=== PATIENT | male | born 1935 | race Caucasian/White ===

== ENCOUNTER 2016-07-31 14:06 | Emergency (ER) | payer MEDICARE ==
--- NOTE | 2016-07-31 14:34 | ER Document Report ---
ED Medical Screen (RME) - General Chief Complaint: Chest Pressure Stated Complaint: CHEST PAIN Time seen by provider: 14:32 Mode of Arrival: Ambulatory Information source: Patient TRAVEL OUTSIDE OF THE [place] IN LAST 30 DAYS: No - HPI Patient complains to provider of: CHEST PRESSURE Onset: Other - SEVERAL DAYS Onset/Duration: Intermittent Context: PT THINKS MEDICATION CHANGE THAT OCCURRED SATURDAY IS THE CAUSE OF THE PRESSURE Quality of pain: Pressure Severity: Moderate Pain Level: 3 Associated Symptoms: Chest pain, Dizzy/lightheaded, Shortness of breath, Other - FATIGUE. denies: Nausea, Vomiting Exacerbated by: Denies Relieved by: Denies Similar symptoms previously: Yes Recently seen / treated by doctor: Yes - Related Data Smoking: Cigarettes Frequency of alcohol use: None Drug Abuse: None Allergies/Adverse Reactions: Penicillins Allergy (Verified 07/31/16 14:08) prednisone [Prednisone] Allergy (Verified 07/31/16 14:08) Past Medical History - Past Medical History Cardiac Medical History: Reports: Hx Heart Attack - 2015, Hx Hypercholesterolemia, Hx Hypertension Past Surgical History: Reports: Hx Appendectomy, Hx Bowel Surgery - Hemmorhoidectomy, Hx Cardiac Surgery - CABG x 3 - Immunizations Hx Diphtheria, Pertussis, Tetanus Vaccination: Yes Physical Exam - Vital signs Vitals: Temp Pulse Resp BP Pulse Ox 98.3 F 92 20 131/70 H 99 07/31/16 14:24 07/31/16 14:24 07/31/16 14:24 07/31/16 14:24 07/31/16 14:24 Course - Vital Signs Vital signs: Temp Pulse Resp BP Pulse Ox 98.3 F 92 20 131/70 H 99 07/31/16 14:24 07/31/16 14:24 07/31/16 14:24 07/31/16 14:24 07/31/16 14:24
--- NOTE | 2016-07-31 14:54 | EKG REPORT ---
SEVERITY:- NORMAL ECG - SINUS RHYTHM sinus Arrhythmia : Confirmed by: Kailyn Bustamante 01-Aug-2016 01:23:41
[2016-07-31 16:10] LABS: ABSOLUTE BASOPHILS # (AUTO) 0.1 10^3/uL (0.0-0.2); ABSOLUTE EOSINOPHILS # (AUTO) 0.3 10^3/uL (0.0-0.6); ABSOLUTE LYMPHOCYTES (AUTO) 0.9 10^3/uL (0.5-4.7); ABSOLUTE MONOCYTES (AUTO) 1.4 10^3/uL (0.1-1.4); ABSOLUTE NEUT (AUTO) 6.8 10^3/uL (1.7-8.2); BASOPHILS % (AUTO) 0.8 % (0-2); EOSINOPHILS % (AUTO) 2.7 % (0-6); HEMATOCRIT 29.2 % (37.9-51.0); HEMOGLOBIN 10.1 g/dL (13.5-17.0); HGB HCT DIFFERENCE 1.1; LYMPHOCYTES % (AUTO) 9.7 % (13-45); MEAN CORPUSCULAR HEMOGLOBIN 36.8 pg (27.0-33.4); MEAN CORPUSCULAR HGB CONC 34.7 g/dL (32.0-36.0); MEAN CORPUSCULAR VOLUME 106 fl (80-97); MONOCYTES % (AUTO) 14.6 % (3-13); RED BLOOD COUNT 2.76 10^6/uL (4.35-5.55); RED CELL DISTRIBUTION WIDTH 16.8 % (11.5-14.0); SEGMENTED NEUTROPHILS % (AUTO) 72.2 % (42-78); WHITE BLOOD COUNT 9.5 10^3/uL (4.0-10.5)
[2016-07-31 16:17] LABS: PROTHROMBIN TIME 13.5 SEC (11.4-15.4)
[2016-07-31 16:38] LABS: ALANINE AMINOTRANSFERASE 34 U/L (21-72); ALKALINE PHOSPHATASE 74 U/L (38-126); ANION GAP 11 (5-19); ASPARTATE AMINO TRANSFERASE 26 U/L (17-59); BILIRUBIN,TOTAL 0.8 mg/dL (0.2-1.3); BLOOD UREA NITROGEN 27 mg/dL (7-20); CALCIUM 9.2 mg/dL (8.4-10.2); CARBON DIOXIDE 27 mmol/L (22-30); CHLORIDE 99 mmol/L (98-107); CREATINE KINASE 36 U/L (55-170); CREATININE RESULT 1.35 mg/dL (0.52-1.25); GLUCOSE 96 mg/dL (75-110); SODIUM 136.9 mmol/L (137-145); TOTAL PROTEIN 7.2 g/dL (6.3-8.2)
[2016-07-31 16:49] LABS: CREATINE KINASE MB 0.33 ng/mL (<4.55)
[2016-07-31 16:52] LABS: TROPONIN I < 0.012 ng/mL
--- NOTE | 2016-07-31 19:25 | ER Document Report ---
ED General - General Chief Complaint: Chest Pressure Stated Complaint: CHEST PAIN Mode of Arrival: Ambulatory Notes: Patient is an 81-year-old male with past medical history of coronary artery disease status post multiple caths with stents and CABG, hypertension, hyperlipidemia presents with 2 days of intermittent chest pressure. Denies any pain at the time of assessment. Described as a pressure-like sensation. Nothing improves or worsens the pain. States this feels very similar to prior episodes of angina he's had but he was concerned as it was a bit more intense than his normal. 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 Denies any shortness of breath, nausea, vomiting or diaphoresis. No syncope. TRAVEL OUTSIDE OF THE [place] IN LAST 30 DAYS: No - Related Data Allergies/Adverse Reactions: Penicillins Allergy (Verified 07/31/16 14:08) prednisone [Prednisone] Allergy (Verified 07/31/16 14:08) Past Medical History - General Information source: Patient - Social History Smoking Status: Never Smoker Frequency of alcohol use: None Drug Abuse: None Lives with: Spouse/Significant other Family History: Reviewed & Not Pertinent Patient has suicidal ideation: No Patient has homicidal ideation: No - Past Medical History Cardiac Medical History: Reports: Hx Heart Attack - 2015, Hx Hypercholesterolemia, Hx Hypertension Past Surgical History: Reports: Hx Appendectomy, Hx Bowel Surgery - Hemmorhoidectomy, Hx Cardiac Surgery - CABG x 3 - Immunizations Hx Diphtheria, Pertussis, Tetanus Vaccination: Yes Review of Systems - Review of Systems Notes: Constitutional: Negative for fever. HENT: Negative for sore throat. Eyes: Negative for visual changes. Cardiovascular: Positive for chest pain. Respiratory: Negative for shortness of breath. Gastrointestinal: Negative for abdominal pain, vomiting or diarrhea. Genitourinary: Negative for dysuria. Musculoskeletal: Negative for back pain. Skin: Negative for rash. Neurological: Negative for headaches, weakness or numbness. 10 point ROS negative except as marked above and in HPI. Physical Exam - Vital signs Vitals: Temp Pulse Resp BP Pulse Ox 98.3 F 92 20 131/70 H 99 07/31/16 14:24 07/31/16 14:24 07/31/16 14:24 07/31/16 14:24 07/31/16 14:24 Interpretation: Normal Notes: PHYSICAL EXAMINATION: GENERAL: Well-appearing, well-nourished and in no acute distress. HEAD: Atraumatic, normocephalic. EYES: Pupils equal round and reactive to light, extraocular movements intact, sclera anicteric, conjunctiva are normal. ENT: nares patent, oropharynx clear without exudates. Moist mucous membranes. NECK: Normal range of motion, supple without lymphadenopathy LUNGS: Breath sounds clear to auscultation bilaterally and equal. No wheezes rales or rhonchi. HEART: Regular rate and rhythm without murmurs ABDOMEN: Soft, nontender, normoactive bowel sounds. No guarding, no rebound. No masses appreciated. EXTREMITIES: Normal range of motion, no pitting or edema. No cyanosis. NEUROLOGICAL: No focal neurological deficits. Moves all extremities spontaneously and on command. PSYCH: Normal mood, normal affect. SKIN: Warm, Dry, normal turgor, no rashes or lesions noted. Course - Re-evaluation Re-evalutation: 08/01/16 02:36 Presentation of chest pain in an otherwise well appearing patient. Low clinical suspicion for ACS given clinical history, exam, EKG without ST elevations or depressions, and negative initial troponin. PE also seems unlikely given clinical history, absence of tachycardia or dyspnea. Wells score is 0. CXR without evidence of pneumothorax or pneumonia. No widened mediastinum. Aortic dissection also seems unlikely given history, symmetric pulses, CXR, and vitals. I have discussed at length with the patient that based on his age and medical history, there is no way I can tell him he is definitively low risk and have offered admission to the hospital for inpatient stress testing. The patient and his son at the bedside and agreed to follow-up as an outpatient and have verbalized the risks and benefits of this decision. The patient has capacity. He has remained chest pain-free throughout the duration of his time here in the emergency department.At this time will discharge with return precautions and follow-up recommendations. Verbal discharge instructions given a the bedside and opportunity for questions given. Medication warnings reviewed. Patient is in agreement with this plan and has verbalized understanding of return precautions and the need for primary care follow-up in the next 24-72 hours. - Vital Signs Vital signs: Temp Pulse Resp BP Pulse Ox 98.0 F 75 18 129/64 H 94 07/31/16 19:36 07/31/16 19:36 07/31/16 19:36 07/31/16 19:36 07/31/16 19:36 - Laboratory Result Diagrams: 07/31/16 15:49 07/31/16 13:26 Laboratory results interpreted by me: 07/31/16 07/31/16 13:26 15:49 RBC 2.76 L Hgb 10.1 L Hct 29.2 L MCV 106 H MCH 36.8 H RDW 16.8 H Plt Count 117 L Lymphocytes % 9.7 L Monocytes % 14.6 H Sodium 136.9 L BUN 27 H Creatinine 1.35 H Est GFR (Non-Af Amer) 51 L Creatine Kinase 36 L - Diagnostic Test Radiology reviewed: Image reviewed, Reports reviewed Radiology results interpreted by me: 08/01/16 02:36 Chest x-ray: No acute infiltrate or pneumothorax - EKG Interpretation by Me Additional EKG results interpreted by me: 08/01/16 02:38 Sinus rhythm. Rate 91. No ST elevations or depressions. QTC 429. Discharge - Discharge Clinical Impression: Chest pain Qualifiers: Chest pain type: unspecified Qualified Code(s): R07.9 - Chest pain, unspecified Condition: Good Disposition: HOME, SELF-CARE Additional Instructions: You were seen today for chest pain. The exact cause of your pain is unclear. However, based on your cardiac enzyme testing, chest x-ray, and EKG it does not appear that it is from an immediately life-threatening cause at this time. Although your testing here is normal is critical that you follow-up with your primary care physician for continued evaluation of this chest pain and possible stress testing. I recommended you see your physician within the next 24-48 hours to be evaluated for consideration of a stress test. Please return to emergency department immediately if you have worsening of your chest pain, shortness of breath, vomiting, become unable to exert yourself due to pain or difficulty breathing, you pass out, or have any pain that radiates into your arms, jaw, or back. Please also return if you have any additional symptoms that are concerning to you. Referrals: DANNY IJM MD [Primary Care Provider] - Follow up tomorrow
[2016-07-31 19:40] VITALS: BP 129/64
== END 2016-07-31 19:40 | disposition home or self-care (01) ==
LOC: ER 14:06
DX: R07.9 Chest pain, unspecified (principal); I25.10 Atherosclerotic heart disease of native coronary artery without angina pectoris; I10 Essential (primary) hypertension; E78.5 Hyperlipidemia, unspecified
CPT/HCPCS: 36415; 71020; 80053; 82550; 82553; 84484; 85025; 85610; 93005; 93010; 99285

== ENCOUNTER → 2016-09-25 | Outpatient (CLI) | payer MEDICARE ==
[2016-09-25 14:38] LABS: HEMATOCRIT 32.9 % (37.9-51.0); HGB HCT DIFFERENCE 0.1; MEAN CORPUSCULAR HGB CONC 33.5 g/dL (32.0-36.0); RED BLOOD COUNT 2.98 10^6/uL (4.35-5.55); WHITE BLOOD COUNT 5.5 10^3/uL (4.0-10.5)
[2016-09-25 14:39] LABS: MEAN CORPUSCULAR VOLUME 111 fl (80-97)
[2016-09-25 14:47] LABS: ALANINE AMINOTRANSFERASE 31 U/L (21-72); ALBUMIN 4.4 g/dL (3.5-5.0); ALKALINE PHOSPHATASE 79 U/L (38-126); ANION GAP 12 (5-19); ASPARTATE AMINO TRANSFERASE 26 U/L (17-59); BILIRUBIN,TOTAL 0.5 mg/dL (0.2-1.3); BLOOD UREA NITROGEN 24 mg/dL (7-20); CALCIUM 9.7 mg/dL (8.4-10.2); CARBON DIOXIDE 26 mmol/L (22-30); CHLORIDE 103 mmol/L (98-107); CHOLESTEROL 127.74 mg/dL (0-200); CREATININE RESULT 1.36 mg/dL (0.52-1.25); Direct HDL 43 mg/dL (>40); GLUCOSE 88 mg/dL (75-110); MAGNESIUM 2.2 mg/dL (1.6-2.3); POTASSIUM 4.9 mmol/L (3.6-5.0); SODIUM 141.1 mmol/L (137-145); TOTAL PROTEIN 7.5 g/dL (6.3-8.2); TRIGLYCERIDES 99 mg/dL (<150)
[2016-09-25 14:58] LABS: DIRECT LDL 66 mg/dL (<100)
== END ==
LOC: OD 12:57
PROVIDERS: ATTEND Internal Medicine Cardiovascular Disease
DX: I10 Essential (primary) hypertension (principal); E03.9 Hypothyroidism, unspecified; I48.91 Unspecified atrial fibrillation; R25.2 Cramp and spasm; I25.10 Atherosclerotic heart disease of native coronary artery without angina pectoris; R06.02 Shortness of breath
CPT/HCPCS: 36415; 80048; 80061; 80076; 83735; 83880; 84443; 85027

== ENCOUNTER → 2017-08-08 | Outpatient (CLI) | payer MEDICARE ==
[2017-08-08 09:42] LABS: ANION GAP 9 (5-19); BLOOD UREA NITROGEN 26 mg/dL (7-20); CALCIUM 10.1 mg/dL (8.4-10.2); CARBON DIOXIDE 29 mmol/L (22-30); CHLORIDE 105 mmol/L (98-107); CHOLESTEROL 122.65 mg/dL (0-200); GLUCOSE 93 mg/dL (75-110); POTASSIUM 5.3 mmol/L (3.6-5.0); SODIUM 142.9 mmol/L (137-145); TRIGLYCERIDES 65 mg/dL (<150)
[2017-08-08 09:53] LABS: DIRECT LDL 52 mg/dL (<100)
== END ==
LOC: OD 08:37
PROVIDERS: ATTEND Internal Medicine Cardiovascular Disease
DX: E78.00 Pure hypercholesterolemia, unspecified (principal); I48.0 Paroxysmal atrial fibrillation; R06.02 Shortness of breath
CPT/HCPCS: 36415; 80048; 80061; 83880

== ENCOUNTER → 2017-08-27 | Outpatient (CLI) | payer MEDICARE ==
[2017-08-27 12:47] LABS: ANION GAP 8 (5-19); BLOOD UREA NITROGEN 30 mg/dL (7-20); CALCIUM 9.9 mg/dL (8.4-10.2); CARBON DIOXIDE 28 mmol/L (22-30); CHLORIDE 105 mmol/L (98-107); GLUCOSE 100 mg/dL (75-110); POTASSIUM 5.2 mmol/L (3.6-5.0); SODIUM 141.4 mmol/L (137-145)
== END ==
LOC: OD 11:40
PROVIDERS: ATTEND Internal Medicine Cardiovascular Disease
DX: E87.5 Hyperkalemia (principal); N18.3 Chronic kidney disease, stage 3 (moderate)
CPT/HCPCS: 36415; 80048

== ENCOUNTER → 2017-11-11 | Outpatient (CLI) | payer MEDICARE ==
[2017-11-11 15:22] LABS: APPEARANCE,URINE CLOUDY; BILIRUBIN,URINE NEGATIVE (NEGATIVE); COLOR,URINE YELLOW; GLUCOSE, URINE NEGATIVE (NEGATIVE); KETONES,URINE NEGATIVE (NEGATIVE); LEUKOCYTE ESTERASE,URINE LARGE (NEGATIVE); NITRITE,URINE POSITIVE (NEGATIVE); PROTEIN,URINE 100 mg/dL (NEGATIVE); URINE SPECIFIC GRAVITY 1.018; UROBILINOGEN,URINE NEGATIVE mg/dL (<2.0)
[2017-11-11 15:32] LABS: HEMATOCRIT 29.9 % (37.9-51.0); HEMOGLOBIN 10.1 g/dL (13.5-17.0); MEAN CORPUSCULAR HEMOGLOBIN 38.2 pg (27.0-33.4); MEAN CORPUSCULAR HGB CONC 33.7 g/dL (32.0-36.0); PLATELET COUNT 141 10^3/uL (150-450); RED BLOOD COUNT 2.64 10^6/uL (4.35-5.55); RED CELL DISTRIBUTION WIDTH 17.3 % (11.5-14.0); WHITE BLOOD COUNT 6.4 10^3/uL (4.0-10.5)
[2017-11-11 15:36] LABS: ALBUMIN 3.8 g/dL (3.5-5.0); ANION GAP 10 (5-19); BLOOD UREA NITROGEN 26 mg/dL (7-20); CALCIUM 9.3 mg/dL (8.4-10.2); CARBON DIOXIDE 29 mmol/L (22-30); CHLORIDE 102 mmol/L (98-107); GLUCOSE 89 mg/dL (75-110); POTASSIUM 4.8 mmol/L (3.6-5.0); SODIUM 140.7 mmol/L (137-145)
[2017-11-11 15:53] LABS: ABSOLUTE MONOCYTES # (MANUAL) 0.8 10^3/uL (0.1-1.4); ABSOLUTE NEUTROPHILS# (MANUAL) 3.8 10^3/uL (1.7-8.2); BAND NEUTROPHILS % (MANUAL) 3 % (3-5); BASOPHILS % (MANUAL) 0 % (0-2); EOSINOPHILS % (MANUAL) 12 % (0-6); LYMPHOCYTES % (MANUAL) 15 % (13-45); METAMYELOCYTES % (MANUAL) 1 % (0); MONOCYTES % (MANUAL) 13 % (3-13); SEGMENTED NEUTROPHILS % (MAN) 56 % (42-78); TOTAL CELLS COUNTED 100
[2017-11-11 15:55] LABS: ANISOCYTOSIS 1+; PLATELET COMMENT ADEQUATE; PLATELET LARGE PRESENT
[2017-11-11 15:56] LABS: OVALOCYTES SLIGHT; POLYCHROMASIA SLIGHT; TOXIC VACUOLATION PRESENT
[2017-11-11 15:57] LABS: MEAN CORPUSCULAR VOLUME 113 fl (80-97)
[2017-11-12 12:29] LABS: PATH REVIEW PATHOLOGIST REVIEWED
[2017-11-12 12:38] LABS: CREATININE URINE 110.9 mg/dL (Not Estab.)
[2017-11-12 13:54] LABS: MICROALBUMIN URINE 414.8 ug/mL (Not Estab.)
== END ==
LOC: OD 14:27
PROVIDERS: ATTEND Internal Medicine Nephrology
DX: N18.3 Chronic kidney disease, stage 3 (moderate) (principal); N13.9 Obstructive and reflux uropathy, unspecified
CPT/HCPCS: 36415; 80048; 81001; 82040; 82043; 82306; 82570; 83970; 84100; 85025

== ENCOUNTER 2017-12-07 08:32 | Outpatient (CLI) | payer MEDICARE ==
[2017-12-07] MEDS ORDERED: DIPHENHYDRAMINE HCL 25 MG CAPSULE PO PRN (08:47)
[2017-12-07] MEDS ORDERED: ACETAMINOPHEN 325 MG TABLET PO PRN (08:47)
[2017-12-07] MEDS ORDERED: FUROSEMIDE INJ/PF 40 MG/4 ML SDV IV PRN (08:47)
[2017-12-07 10:22] LABS: HEMATOCRIT 30.2 % (37.9-51.0); HEMOGLOBIN 10.1 g/dL (13.5-17.0); MEAN CORPUSCULAR HEMOGLOBIN 38.1 pg (27.0-33.4); MEAN CORPUSCULAR HGB CONC 33.3 g/dL (32.0-36.0); PLATELET COUNT 149 10^3/uL (150-450); RED BLOOD COUNT 2.64 10^6/uL (4.35-5.55); RED CELL DISTRIBUTION WIDTH 16.9 % (11.5-14.0); WHITE BLOOD COUNT 5.2 10^3/uL (4.0-10.5)
[2017-12-07 10:41] LABS: MEAN CORPUSCULAR VOLUME 114 fl (80-97)
[2017-12-07 10:50] VITALS: BP 113/66
[2017-12-09 15:34] LABS: PATH REVIEW PATHOLOGIST REVIEWED
== END 2017-12-07 11:07 | disposition home or self-care (01) ==
LOC: II 08:32 → 2S 08:34 → II 11:07
PROVIDERS: ATTEND Internal Medicine Nephrology
DX: D64.9 Anemia, unspecified (principal); Z53.8 Procedure and treatment not carried out for other reasons
CPT/HCPCS: 36415; 86850; 86900; 86901

== ENCOUNTER → 2018-01-14 | Outpatient (CLI) | payer MEDICARE ==
[2018-01-14 13:29] LABS: ABSOLUTE BASOPHILS # (AUTO) 0.1 10^3/uL (0.0-0.2); ABSOLUTE EOSINOPHILS # (AUTO) 0.6 10^3/uL (0.0-0.6); ABSOLUTE NEUT (AUTO) 3.2 10^3/uL (1.7-8.2); BASOPHILS % (AUTO) 1.5 % (0-2); EOSINOPHILS % (AUTO) 9.4 % (0-6); HEMATOCRIT 29.4 % (37.9-51.0); MEAN CORPUSCULAR HEMOGLOBIN 38.4 pg (27.0-33.4); MEAN CORPUSCULAR HGB CONC 34.2 g/dL (32.0-36.0); MEAN CORPUSCULAR VOLUME 112 fl (80-97); MONOCYTES % (AUTO) 17.5 % (3-13); PLATELET COUNT 139 10^3/uL (150-450); RED BLOOD COUNT 2.62 10^6/uL (4.35-5.55); RED CELL DISTRIBUTION WIDTH 16.9 % (11.5-14.0); SEGMENTED NEUTROPHILS % (AUTO) 54.6 % (42-78); TOTAL CELLS COUNTED % (AUTO) 100 %; WHITE BLOOD COUNT 5.9 10^3/uL (4.0-10.5)
[2018-01-14 14:01] LABS: ANISOCYTOSIS 2+; OVALOCYTES SLIGHT; PLATELET COMMENT DECREASED; POIKILOCYTOSIS 1+; STOMATOCYTES 1+; TEAR DROP CELLS SLIGHT
== END ==
LOC: OD 12:39
PROVIDERS: ATTEND Internal Medicine Nephrology
DX: N18.3 Chronic kidney disease, stage 3 (moderate) (principal); N18.9 Chronic kidney disease, unspecified; R80.9 Proteinuria, unspecified
CPT/HCPCS: 36415; 85025

== ENCOUNTER → 2018-06-04 | Outpatient (CLI) | payer MEDICARE ==
[2018-06-04 14:15] LABS: HEMATOCRIT 25.6 % (37.9-51.0); MEAN CORPUSCULAR HEMOGLOBIN 39.6 pg (27.0-33.4); MEAN CORPUSCULAR HGB CONC 35.1 g/dL (32.0-36.0); MEAN CORPUSCULAR VOLUME 113 fl (80-97); PLATELET COUNT 119 10^3/uL (150-450); RED BLOOD COUNT 2.27 10^6/uL (4.35-5.55); RED CELL DISTRIBUTION WIDTH 18.4 % (11.5-14.0); WHITE BLOOD COUNT 4.5 10^3/uL (4.0-10.5)
== END ==
LOC: OD 13:36
PROVIDERS: ATTEND Internal Medicine Nephrology
DX: N18.4 Chronic kidney disease, stage 4 (severe) (principal)
CPT/HCPCS: 36415; 85027

== ENCOUNTER → 2018-08-01 | Outpatient (CLI) | payer MEDICARE ==
[2018-08-01 15:16] LABS: HEMOGLOBIN 9.3 g/dL (13.5-17.0); MEAN CORPUSCULAR HEMOGLOBIN 38.9 pg (27.0-33.4); MEAN CORPUSCULAR HGB CONC 34.6 g/dL (32.0-36.0); MEAN CORPUSCULAR VOLUME 113 fl (80-97); PLATELET COUNT 113 10^3/uL (150-450); RED CELL DISTRIBUTION WIDTH 16.7 % (11.5-14.0); WHITE BLOOD COUNT 7.4 10^3/uL (4.0-10.5)
[2018-08-01 15:45] LABS: ABSOLUTE LYMPHOCYTES# (MANUAL) 1.6 10^3/uL (0.5-4.7); ABSOLUTE MONOCYTES # (MANUAL) 1.5 10^3/uL (0.1-1.4); ABSOLUTE NEUTROPHILS# (MANUAL) 3.5 10^3/uL (1.7-8.2); BASOPHILS % (MANUAL) 0 % (0-2); EOSINOPHILS % (MANUAL) 12 % (0-6); LYMPHOCYTES % (MANUAL) 21 % (13-45); MONOCYTES % (MANUAL) 20 % (3-13); SEGMENTED NEUTROPHILS % (MAN) 47 % (42-78); TOTAL CELLS COUNTED 100
[2018-08-01 15:46] LABS: OVALOCYTES SLIGHT; POIKILOCYTOSIS 1+
[2018-08-01 15:47] LABS: ANISOCYTOSIS 1+; PLATELET COMMENT DECREASED; PLATELET LARGE PRESENT; POLYCHROMASIA SLIGHT; TEAR DROP CELLS 1+
[2018-08-01 16:37] LABS: ALBUMIN 3.9 g/dL (3.5-5.0); ANION GAP 6 (5-19); BLOOD UREA NITROGEN 28 mg/dL (7-20); CARBON DIOXIDE 28 mmol/L (22-30); CHLORIDE 104 mmol/L (98-107); GLUCOSE 98 mg/dL (75-110); IRON(TIBC) 97.1 ug/dL (49-181); PHOSPHORUS 3.6 mg/dL (2.5-4.5); SODIUM 137.9 mmol/L (137-145)
== END ==
LOC: OD 14:25
PROVIDERS: ATTEND Internal Medicine Nephrology
DX: N18.3 Chronic kidney disease, stage 3 (moderate) (principal); D63.1 Anemia in chronic kidney disease; N25.81 Secondary hyperparathyroidism of renal origin; D50.9 Iron deficiency anemia, unspecified
CPT/HCPCS: 36415; 80048; 82040; 82306; 82728; 83540; 83550; 83970; 84100; 85025

== ENCOUNTER 2018-09-25 19:14 | Inpatient (IN) | payer MEDICARE ==
[2018-09-25 20:01] LABS: HEMATOCRIT 28.5 % (37.9-51.0); HEMOGLOBIN 9.6 g/dL (13.5-17.0); MEAN CORPUSCULAR HEMOGLOBIN 38.1 pg (27.0-33.4); MEAN CORPUSCULAR HGB CONC 33.6 g/dL (32.0-36.0); PLATELET COUNT 107 10^3/uL (150-450); RED BLOOD COUNT 2.51 10^6/uL (4.35-5.55); RED CELL DISTRIBUTION WIDTH 17.3 % (11.5-14.0); WHITE BLOOD COUNT 21.2 10^3/uL (4.0-10.5)
[2018-09-25 20:04] LABS: MEAN CORPUSCULAR VOLUME 113 fl (80-97)
[2018-09-25 20:14] LABS: ABSOLUTE LYMPHOCYTES# (MANUAL) 0.4 10^3/uL (0.5-4.7); ABSOLUTE NEUTROPHILS# (MANUAL) 20.8 10^3/uL (1.7-8.2); ANISOCYTOSIS 1+; BAND NEUTROPHILS % (MANUAL) 3 % (3-5); BASOPHILS % (MANUAL) 0 % (0-2); EOSINOPHILS % (MANUAL) 0 % (0-6); LYMPHOCYTES % (MANUAL) 2 % (13-45); MONOCYTES % (MANUAL) 0 % (3-13); PLATELET COMMENT DECREASED; SEGMENTED NEUTROPHILS % (MAN) 95 % (42-78); TOTAL CELLS COUNTED 100
[2018-09-25 20:15] LABS: PLATELET LARGE PRESENT; POLYCHROMASIA SLIGHT; TOXIC VACUOLATION PRESENT
[2018-09-25 20:16] LABS: ANION GAP 9 (5-19); BLOOD UREA NITROGEN 29 mg/dL (7-20); CALCIUM 9.1 mg/dL (8.4-10.2); CARBON DIOXIDE 24 mmol/L (22-30); CHLORIDE 107 mmol/L (98-107); POTASSIUM 3.9 mmol/L (3.6-5.0)
[2018-09-25 20:17] LABS: HYPOCHROMASIA SLIGHT
[2018-09-25 20:25] LABS: GLUCOSE 66 mg/dL (75-110)
[2018-09-25] MEDS ORDERED: DEXTROSE 50%-WATER 25 GM/50 ML DISP.SYRIN IV ONE ×2 (20:34→20:36)
[2018-09-25] MEDS ORDERED: NORMAL SALINE 1000 ML 500 ML IV ONE (20:35)
[2018-09-25] MEDS ORDERED: RINGERS SOLUTION,LACTATED 1,000 ML IV ONE ×3 (20:49→23:06)
--- NOTE | 2018-09-25 20:53 | ER Document Report ---
ED General - General Chief Complaint: Rectal Bleeding Stated Complaint: RECTAL BLEEDING Time Seen by Provider: 09/25/18 19:35 Primary Care Provider: DARLYN BROWNE MD [Primary Care Provider] - Follow up as needed Notes: Patient is an 83-year-old male with past medical history of chronic anemia, hypertension, hyperlipidemia, presents complaining of a syncopal episode just prior to arrival. Patient reports that he has had 3-4 days of dark or maroon colored stools. Apparently today after having a bowel movement he became lightheaded and had an episode of syncope. Since that time the patient states that he has felt somewhat lightheaded, globally weak. Denies focal abdominal pain. Nothing seems to improve or worsen his symptoms. Denies a history of the same in the past. States last colonoscopy was approximately 7 or 8 years ago, had polyps but no additional findings. Does not use any form of anti-coag ulation. States that he does have pain between the area of his anus and his penis. As a throbbing, aching, constant pain worsened with sitting or pushing on the area. Has not had a recorded fever at home. Has not seen his primary care physician regarding today's concerns. Does present by EMS. TRAVEL OUTSIDE OF THE [place] IN LAST 30 DAYS: No - Related Data Allergies/Adverse Reactions: prednisone [Prednisone] Allergy (Verified 09/25/18 19:16) Penicillins Adverse Reaction (Unknown, Verified 09/25/18 21:52) Hallucinations Past Medical History - General Information source: Patient - Social History Smoking Status: Current Every Day Smoker Frequency of alcohol use: None Drug Abuse: None Lives with: Family Family History: Reviewed & Not Pertinent Patient has suicidal ideation: No Patient has homicidal ideation: No - Past Medical History Cardiac Medical History: Reports: Hx Atrial Fibrillation, Hx Heart Attack - 2015, Hx Hypercholesterolemia, Hx Hypertension Renal/ Medical History: Denies: Hx Peritoneal Dialysis Past Surgical History: Reports: Hx Appendectomy, Hx Bowel Surgery - Hemmorhoidectomy, Hx Cardiac Surgery - CABG x 3 - Immunizations Hx Diphtheria, Pertussis, Tetanus Vaccination: Yes Review of Systems - Review of Systems Notes: Constitutional: Positive for fever. HENT: Negative for sore throat. Eyes: Negative for visual changes. Cardiovascular: Negative for chest pain. Respiratory: Negative for shortness of breath. Gastrointestinal: Positive for lower abdominal pain, nausea, rectal bleeding Genitourinary: Negative for dysuria. Musculoskeletal: Positive for left flank pain Skin: Negative for rash. Neurological: Negative for headaches, weakness or numbness. 10 point ROS negative except as marked above and in HPI. Physical Exam - Vital signs Vitals: Pulse 115 H 09/25/18 19:14 Interpretation: Tachycardic, Febrile Notes: PHYSICAL EXAMINATION: GENERAL: Ill in appearance but in no acute distress HEAD: Atraumatic, normocephalic. EYES: Pupils equal round and reactive to light, extraocular movements intact, sc vania anicteric, conjunctiva are normal. ENT: nares patent, oropharynx clear without exudates. Dry mucous membranes. NECK: Normal range of motion, supple without lymphadenopathy LUNGS: Mild tachypnea, normal chest excursion. Breath sounds clear and equal bilaterally HEART: Regular tachycardia without murmurs ABDOMEN: Soft, nontender, normoactive bowel sounds. No guarding, no rebound. No masses appreciated. Rectal: Maroon stool, no masses or lesions. Exquisite tenderness on palpation of the prostate. EXTREMITIES: Normal range of motion, no pitting or edema. No cyanosis. NEUROLOGICAL: No focal neurological deficits. Moves all extremities spontaneously and on command. PSYCH: Normal mood, normal affect. SKIN: Warm, Dry, normal turgor, no rashes or lesions noted. Course - Re-evaluation Re-evalutation: 09/25/18 20:51 Presentation of an ill-appearing 83-year-old male with complaints of rectal bleeding. Despite this being the patient's primary complaint, my actual main concern on initial evaluation as the patient is septic. When I checked the patient's hand he felt quite hot even though being recorded as non-febrile at triage. A rectal temperature taken at bedside does reveal the patient is actually febrile at 101.4. She had maroon stool, guaiac positive. He had severe pain on palpation of the prostate during rectal examination. His abdominal exam is relatively benign without areas of focal rebound guarding or focal tenderness. Patient does have a constant indwelling urinary catheter. Patient was initially profoundly hypotensive for EMS 60 on 40 after an episode of syncope. His blood count is thankfully actually improved from his most recent outpatient assessment although he has a market leukocytosis. I have added on a lactate, venous blood gas, blood cultures, urinalysis, urine cultures as well as a CT scan of the abdomen and pelvis. Patient appears to have a lower rectal bleed source possibly diverticulosis versus internal hemorrhoids. Patient could have a bleeding diverticulitis versus prostatitis with superimposed diverticulosis. Additional labs and imaging pending. 2 L of IV fluids have been initiated. Have started broad-spectrum antibiotics with IV cefepime 2 g. Patient is in guarded condition, will be reassessed at regular intervals. 09/25/18 23:06 Patient's urinalysis suggestive of pyelonephritis versus severe acute prostatic prostatitis. Patient has developed some hypotension, currently 87 on 47 although his heart rate has improved. Patient will receive a third L of lactated Ringer's. I did go to the bedside and the patient has only received 1 L apparently the fluids were not hanging correctly. I have asked that the second and third liter be bolused on pressure bags immediately. If the patient does not appropriately fluid responsive will proceed for central line placement and vasopressor agent infusion. Patient has not had any further bleeding. I did repeat rectal exam without any active blood at this time. Will repeat CBC to ensure that there has not been a down trend in his hemoglobin. 09/25/18 23:44 Right internal jugular central line placed after discussion with the hospitalist who did state that he would like this to be placed at this time in anticipation that the patient require vasopressor infusion, blood transfusion, frequent blood draws, and need for ongoing volume resuscitation. I think this is very reasonable and thus did proceed with placement of central line. Patient tolerated procedure well without any complication. Dr. Velazquez did request troponin assay testing which is also pending. 09/26/18 00:10 Notified by nursing staff the patient has not produced any urine since being in the emergency department. 1/4 L of lactated Ringer's has been ordered. 09/26/18 02:54 I had an extensive conversation with the patient and his son at the bedside lasting 40 minutes in total. In summary reviewed the patient's overall deteriorating condition, rapidly escalating leukocytosis, need for blood transfusion, rectal bleeding, sepsis with associated hypotension, as well as bleeding from his urinary catheter. I did review that the you formal recommendation will be for transfer at this time for colonoscopy and possible urology evaluation. We did review that these measures may not be successful. We did also review that the maximum things that could be offered here at this hospital would include IV fluids, IV antibiotics, blood transfusion and close clinical monitoring. We also offered a tertiary option of comfort measures only. After review of these different options the patient and his son have elected to decline transfer stating that they do not wish to be so far from home and that the patient is uncomfortable with the idea of proceeding with further aggressive treatment such as colonoscopy and cystoscopy at this point. The patient states that he would not want to be on life support, he would not want intubation. States that he feels completely miserable, is hoping for some relief of his symptoms at this time. 2 mg of IV morphine has been ordered but did provide minimal relief. Blood transfusion has been initiated. I did review with Dr. Velazquez who did advise that the patient be transferred. After again reviewing that the patient is declining transfer, review of all options offered, Dr. Velazquez did agree to admit the patient based on the patient's request for hospitalization at this hospital and declining transfer. - Vital Signs Vital signs: Temp Pulse Resp BP Pulse Ox 99.5 F 115 H 25 H 94/58 L 92 09/25/18 22:00 09/25/18 19:14 09/26/18 02:46 09/26/18 02:46 09/26/18 02:46 - Laboratory Result Diagrams: 09/26/18 00:45 09/25/18 19:42 Laboratory results interpreted by me: 09/25/18 09/25/18 09/25/18 19:42 19:42 19:42 WBC 21.2 H RBC 2.51 L Hgb 9.6 L Hct 28.5 L MCV 113 H MCH 38.1 H RDW 17.3 H Plt Count 107 L Seg Neuts % (Manual) 95 H Lymphocytes % (Manual) 2 L Monocytes % (Manual) 0 L Abs Neuts (Manual) 20.8 H Abs Lymphs (Manual) 0.4 L Abs Monocytes (Manual) 0.0 L BUN 29 H Creatinine 1.58 H Est GFR ( Amer) 51 L Est GFR (Non-Af Amer) 42 L Glucose 66 L Lactic Acid Urine Protein Urine Blood Urine Urobilinogen Ur Leukocyte Esterase Crossmatch See Detail 09/25/18 09/25/18 09/26/18 21:25 22:30 00:45 WBC 50.0 H* D RBC 2.08 L Hgb 7.9 L Hct 23.5 L MCV 113 H MCH 37.9 H RDW 17.5 H Plt Count 92 L Seg Neuts % (Manual) Lymphocytes % (Manual) Monocytes % (Manual) Abs Neuts (Manual) Abs Lymphs (Manual) Abs Monocytes (Manual) BUN Creatinine Est GFR ( Amer) Est GFR (Non-Af Amer) Glucose Lactic Acid 2.3 H Urine Protein >=500 H Urine Blood LARGE H Urine Urobilinogen 2.0 H Ur Leukocyte Esterase MODERATE H Crossmatch - Diagnostic Test Radiology reviewed: Image reviewed, Reports reviewed Radiology results interpreted by me: 09/25/18 23:47 Chest x-ray: Right internal jugular central line in the appropriate position. - EKG Interpretation by Me Additional EKG results interpreted by me: 09/26/18 00:15 Sinus tachycardia, rate 113. No ST elevations or depressions. QTC is 439. Procedures - Central Line Right Internal jugular Consent obtained: Yes Central line pre-insertion: Sterile PPE donned, Chloraprep applied, Sterile drapes applied Central line lumen type: Triple Anesthetic type: 1% Lidocaine mL's of anesthesia: 3 Ultrasound guided: Yes CM at insertion site: 18 Line secured with sutures: Yes Central line post-insertion: Blood return from lumens, Biopatch applied, Franklin tured, Sterile dressing applied, Position confirmed w/ CXR Number of attempts: 1 Complications: No Critical Care Note - Critical Care Note Total time excluding time spent on procedures (mins): 90 Comments: Critical care time spent obtaining history from patient or surrogate, discussions with consultants, development of treatment plan with patient or surrogate, evaluation of patient's response to treatment, examination of patient, ordering and performing treatments and interventions, ordering and review of laboratory studies, re-evaluation of patient's condition, ordering and review of radiographic studies and review of old charts Discharge - Discharge Clinical Impression: Pyelonephritis, Septic shock, Rectal bleeding Sepsis Qualifiers: Sepsis type: sepsis due to unspecified organism Qualified Code(s): A41.9 - Sepsis, unspecified organism Diverticulosis Qualifiers: Diverticulosis site: diverticulosis of large intestine Diverticulosis bleeding: diverticulosis with bleeding Qualified Code(s): K57.31 - Diverticulosis of large intestine without perforation or abscess with bleeding Condition: Critical Disposition: ADMITTED INPATIENT Admitting Provider: Hospitalist Unit Admitted: ICU Referrals: DARLYN BROWNE MD [Primary Care Provider] - Follow up as needed
[2018-09-25] MEDS ORDERED: ACETAMINOPHEN 325 MG TABLET PO ONE ×2 (21:19→21:24)
[2018-09-25 21:34] LABS: VENOUS BLOOD BASE EXCESS -1.2 mmol/L; VENOUS BLOOD HCO3 24.4 mmol/L (20-32); VENOUS BLOOD PCO2 43.9 mmHg (35-63); VENOUS BLOOD PH 7.36 (7.30-7.42)
[2018-09-25 22:00] LABS: APPEARANCE,URINE TURBID; BILIRUBIN,URINE NEGATIVE (NEGATIVE); GLUCOSE, URINE NEGATIVE (NEGATIVE); KETONES,URINE NEGATIVE (NEGATIVE); LEUKOCYTE ESTERASE,URINE MODERATE (NEGATIVE); NITRITE,URINE NEGATIVE (NEGATIVE); PROTEIN,URINE >=500 mg/dL (NEGATIVE); URINE SPECIFIC GRAVITY 1.022
[2018-09-25] MEDS ORDERED: CEFEPIME 2 GM/D5W RTU 2 GM/50 ML RTUPB IV ONE (22:00)
[2018-09-25 22:02] LABS: COLOR,URINE YELLOW
--- NOTE | 2018-09-25 22:07 | EKG REPORT ---
SEVERITY:- BORDERLINE ECG - SINUS TACHYCARDIA BORDERLINE INFERIOR Q WAVES BORDERLINE T ABNORMALITIES, INFERIOR LEADS : Confirmed by: Kailyn Bustamante 25-Sep-2018 22:05:52
--- NOTE | 2018-09-25 22:38 | RADIOLOGY REPORT (SQ) ---
CT ABDOMEN PELVIS WITH IV CONTRAST HISTORY: Abdominal pain. COMPARISON: None. TECHNIQUE: CT scan of the abdomen and pelvis with IV contrast. This exam was performed according to our departmental dose-optimization program, which includes automated exposure control, adjustment of the mA and/or kV according to patient size and/or use of iterative reconstruction technique. FINDINGS: The lung bases are clear. No pleural or pericardial effusions. There is no hiatal hernia. The liver, spleen, pancreas, gallbladder, adrenal glands, and right kidney are unremarkable. There is mild perinephric stranding the left kidney, nonspecific. No obstructing urinary stones are seen. There is wall thickening of the urinary bladder. Maldonado catheter is seen with the tip in the prosthetic urethra. There are scattered colonic diverticula without surrounding inflammatory changes. The appendix is not seen. No small bowel obstruction. No intraperitoneal free fluid or free air is seen. The aorta is normal caliber and contains atherosclerotic calcifications. No acute osseous findings are appreciated. There is no body wall hernia. IMPRESSION: 1. Mild inflammatory changes surrounding the left kidney which may represent sequela of recently passed urinary stone. 2. Query mild inflammatory changes surrounding the urinary bladder; correlate with urinalysis to exclude UTI. 3. Maldonado catheter in the prostatic urethra; recommend advancement into the urinary bladder. 4. Diverticulosis without inflammatory changes.
[2018-09-25] MEDS ORDERED: VANCOMYCIN HCL INJ 1000 MG VIAL IV ONE (23:43)
[2018-09-26] MEDS ORDERED: VANCOMYCIN HCL INJ 1000 MG VIAL ONE (00:07)
--- NOTE | 2018-09-26 00:08 | RADIOLOGY REPORT (SQ) ---
EXAM DESCRIPTION: XR CHEST 1 VIEW COMPLETED DATE/TME: 09/25/2018 00:00 CLINICAL HISTORY: 83 years, Male, CENTRAL LINE PLACEMENT Comparison: July 31, 2016 FINDINGS: Right IJ central line terminates at the superior cavoatrial junction in good position. The patient has had a CABG. Lungs are clear. There are no pleural abnormalities. Cardiac silhouette is near the upper limits of normal for size. IMPRESSION: Right IJ central line in good position. No pneumothorax.
[2018-09-26] MEDS ORDERED: RINGERS SOLUTION,LACTATED 1,000 ML IV ONE (00:11)
[2018-09-26 01:03] LABS: HEMATOCRIT 23.5 % (37.9-51.0); MEAN CORPUSCULAR HEMOGLOBIN 37.9 pg (27.0-33.4); MEAN CORPUSCULAR HGB CONC 33.4 g/dL (32.0-36.0); MEAN CORPUSCULAR VOLUME 113 fl (80-97); RED BLOOD COUNT 2.08 10^6/uL (4.35-5.55); RED CELL DISTRIBUTION WIDTH 17.5 % (11.5-14.0)
[2018-09-26] MEDS ORDERED: NORMAL SALINE 250 ML IV PRN (01:13)
[2018-09-26 01:27] LABS: HEMOGLOBIN 7.9 g/dL (13.5-17.0); PLATELET COUNT 92 10^3/uL (150-450)
[2018-09-26] MEDS ORDERED: MORPHINE SULFATE 10 MG/ML INJ IV ONE (01:39)
[2018-09-26] MEDS ORDERED: ONDANSETRON HCL INJ/PF 4 MG/2 ML SDV IV PRN (03:43)
[2018-09-26] MEDS ORDERED: NORMAL SALINE 1000 ML 1,000 ML IV PRN (03:45)
[2018-09-26] MEDS ORDERED: NOREPINEPHRINE BITARTRATE INJ/PF 4 MG/4 ML SDV IV ONE ×3 (03:45→18:02)
[2018-09-26] MEDS: DEXTROSE 5%-WATER 250 ML with NOREPINEPHRINE BITARTRATE 4 MG IV PRN ×8 (04:00→21:07)
[2018-09-26] MEDS ORDERED: METRONIDAZOLE 500 MG/NS RTU 500 MG/100 ML RTUPB IV ONE (04:00)
[2018-09-26] MEDS: IPRATROPIUM/ALBUTEROL 0.5-2.5 MG/3 ML AMPUL NEB PRN (04:55)
--- NOTE | 2018-09-26 05:22 | PDOC H&P ---
History of Present Illness Admission Date/PCP: 09/26/18 03:02 DARLYN BROWNE MD Patient complains of: Rectal bleeding History of Present Illness: KERA CAMPBELL I is a 83 year old male who has a past medical history of coronary artery disease status post coronary artery bypass grafting 2 years ago, atrial fibrillation, myocardial infarct in 2014, myelodysplasia with anemia, BPH and chronic indwelling Maldonado. Patient been in his usual state of health until appro ximately 2 months ago developed an episode of maroon stools which resolved spontaneously without intervention. He has had a return of over the last 3 days a recurrence which is not subsided, 48 hours ago he had his Maldonado catheter replaced by his urologist resulting in subsequent pain, fever and hematuria. In the emergency room he is found to have hypotension, tachycardia, hypoxia and fever, anemia with gross hematuria and strongly positive occult blood in the stool. Patient refuses transfer to tertiary care with knowledge of no urologist, auto service writer or surgeon on-call at this time. He wishes for noninvasive management only. Patient requires transfusion of 2 units of packed red blood cells, 4 L of colloid and referred to the hospitalist for admission. Patient denies any medications of the last 2 weeks Patient's son Ash is power of divorce attorney and at bedside. Patient verifies his CODE STATUS is full code. At the time of my evaluation patient is hypotensive with a systolic pressure of 88, hypoxic at 90% on partial nonrebreather with Manera exam revealing crackles throughout. Patient denies chest pain. Levophed ordered, DuoNeb ordered and he is placed on BiPAP. Past Medical History Cardiac Medical History: Reports: Atrial Fibrillation, Coronary Artery Disease, Myocardial Infarction - 2015, Hyperlipidema, Hypertension Malignancy Medical History: Reports: Other - Myelodysplasia with anemia GI Medical History: Reports: None Musculoskeltal Medical History: Reports: None Skin Medical History: Reports: None Psychiatric Medical History: Reports: None Hematology: Reports: Anemia, Other - Myelodysplasia Infectious Medical History: Reports: None Past Surgical History Past Surgical History: Reports: Appendectomy, Coronary Artery Bypass Graft Social History Information Source: Patient, Emergency Med Personnel, [facility], LAT[facility] Records Lives with: Family Smoking Status: Current Every Day Smoker Frequency of Alcohol Use: None Drugs: None - Advance Directive Resuscitation Status: Full Code Family History Family History: CAD Parental Family History Reviewed: Yes Children Family History Reviewed: Yes Sibling(s) Family History Reviewed.: Yes Medication/Allergy Home Medications: Atorvastatin Calcium [Lipitor 40 mg Tablet] 40 mg PO DAILY 09/26/18 Calcitriol [Rocaltrol 0.25 mcg Capsule] 0.25 mcg PO ASDIR 09/26/18 Clonazepam [Klonopin 1 mg Tablet] 1 mg PO Q12H PRN 09/26/18 Dutasteride 0.5 mg PO DAILY 09/26/18 Metoprolol Tartrate [Lopressor 50 mg Tablet] 50 mg PO BID 09/26/18 Nitroglycerin [Nitrostat 0.4 mg (1/150 Gr) Tabs 25/Bottle] 0.4 mg PO PRN PRN 09/26/18 Sertraline HCl [Zoloft 50 mg Tablet] 50 mg PO DAILY 09/26/18 Tamsulosin HCl [Flomax 0.4 mg Cap.sr] 0.4 mg PO BID 09/26/18 Allergies/Adverse Reactions: prednisone [Prednisone] Allergy (Verified 09/25/18 19:16) Penicillins Adverse Reaction (Unknown, Verified 09/25/18 21:52) Hallucinations Review of Systems Constitutional: PRESENT: as per HPI, fatigue, fever(s), weakness Eyes: ABSENT: visual disturbances Ears: ABSENT: hearing changes Cardiovascular: PRESENT: as per HPI, dyspnea on exertion, palpitations. ABSENT: chest pain, edema, orthropnea Respiratory: PRESENT: dyspnea. ABSENT: hemoptysis Gastrointestinal: PRESENT: as per HPI, melena. ABSENT: abdominal pain, bloating, coffee ground emesis, hematochezia, vomiting Genitourinary: PRESENT: as per HPI, difficulty urinating, dysuria, hematuria Musculoskeletal: ABSENT: joint swelling Integumentary: ABSENT: rash, wounds Neurological: ABSENT: abnormal gait, abnormal speech, confusion, dizziness, focal weakness, syncope Psychiatric: ABSENT: anxiety, depression, homidical ideation, suicidal ideation Endocrine: ABSENT: cold intolerance, heat intolerance, polydipsia, polyuria Hematologic/Lymphatic: ABSENT: easy bleeding, easy bruising Physical Exam Vital Signs: Temp Pulse Resp BP Pulse Ox 99.5 F 90 20 103/57 L 93 09/25/18 22:00 09/26/18 02:00 09/26/18 04:26 09/26/18 04:26 09/26/18 04:26 Intake & Output 09/24/18 09/25/18 09/26/18 11:59 11:59 11:59 Intake Total 3065 Balance 3065 Weight 78.3 kg General appearance: PRESENT: cooperative, severe distress, thin. ABSENT: hard of hearing Head exam: PRESENT: atraumatic, normocephalic Eye exam: PRESENT: conjunctiva pink, EOMI, PERRLA. ABSENT: scleral icterus Ear exam: PRESENT: normal external ear exam Mouth exam: PRESENT: moist, tongue midline Neck exam: ABSENT: carotid bruit, JVD, lymphadenopathy, thyromegaly Respiratory exam: PRESENT: accessory muscle use, crackles, prolonged expiratory phas, symmetrical, tachypnea. ABSENT: rhonchi, stridor Cardiovascular exam: PRESENT: irregular rhythm, +S1, +S2, tachycardia Pulses: PRESENT: normal dorsalis pedis pul Vascular exam: PRESENT: normal capillary refill GI/Abdominal exam: PRESENT: normal bowel sounds, soft. ABSENT: distended, guarding, mass, organolmegaly, rebound, tenderness Rectal exam: PRESENT: black stool, bloody stool Extremities exam: PRESENT: full ROM. ABSENT: calf tenderness, clubbing, pedal edema Neurological exam: PRESENT: alert, awake, oriented to person, oriented to place, oriented to time, oriented to situation, CN II-XII grossly intact. ABSENT: motor sensory deficit Psychiatric exam: PRESENT: appropriate affect, normal mood. ABSENT: homicidal ideation, suicidal ideation Skin exam: PRESENT: dry, intact, warm. ABSENT: cyanosis, rash Results Laboratory Results: 09/26/18 00:45 09/25/18 19:42 09/25/18 09/25/18 09/25/18 19:42 19:42 19:42 WBC 21.2 H RBC 2.51 L Hgb 9.6 L Hct 28.5 L MCV 113 H MCH 38.1 H MCHC 33.6 RDW 17.3 H Plt Count 107 L Seg Neutrophils % Not Reportable Lymphocytes % Not Reportable Monocytes % Not Reportable Eosinophils % Not Reportable Basophils % Not Reportable Absolute Neutrophils Not Reportable Absolute Lymphocytes Not Reportable Absolute Monocytes Not Reportable Absolute Eosinophils Not Reportable Absolute Basophils Not Reportable VBG pH VBG pCO2 VBG HCO3 VBG Base Excess Sodium 140.0 Potassium 3.9 Chloride 107 Carbon Dioxide 24 Anion Gap 9 BUN 29 H Creatinine 1.58 H Est GFR ( Amer) 51 L Est GFR (Non-Af Amer) 42 L Glucose 66 L Lactic Acid Calcium 9.1 Urine Color Urine Appearance Urine pH Ur Specific [place] Urine Protein Urine Glucose (UA) Urine Ketones Urine Blood Urine Nitrite Ur Leukocyte Esterase Urine WBC (Auto) Urine RBC (Auto) Blood Type O NEGATIVE Antibody Screen NEGATIVE 09/25/18 09/25/18 09/25/18 21:21 21:25 22:30 WBC RBC Hgb Hct MCV MCH MCHC RDW Plt Count Seg Neutrophils % Lymphocytes % Monocytes % Eosinophils % Basophils % Absolute Neutrophils Absolute Lymphocytes Absolute Monocytes Absolute Eosinophils Absolute Basophils VBG pH 7.36 VBG pCO2 43.9 VBG HCO3 24.4 VBG Base Excess -1.2 Sodium Potassium Chloride Carbon Dioxide Anion Gap BUN Creatinine Est GFR ( Amer) Est GFR (Non-Af Amer) Glucose Lactic Acid 2.3 H Calcium Urine Color YELLOW Urine Appearance TURBID Urine pH 6.0 Ur Specific [place] 1.022 Urine Protein >=500 H Urine Glucose (UA) NEGATIVE Urine Ketones NEGATIVE Urine Blood LARGE H Urine Nitrite NEGATIVE Ur Leukocyte Esterase MODERATE H Urine WBC (Auto) >182 Urine RBC (Auto) >182 Blood Type Antibody Screen 09/25/18 09/26/18 09/26/18 23:40 00:45 02:38 WBC Cancelled 50.0 H* D RBC Cancelled 2.08 L Hgb Cancelled 7.9 L Hct Cancelled 23.5 L MCV Cancelled 113 H MCH Cancelled 37.9 H MCHC Cancelled 33.4 RDW Cancelled 17.5 H Plt Count Cancelled 92 L Seg Neutrophils % Lymphocytes % Monocytes % Eosinophils % Basophils % Absolute Neutrophils Absolute Lymphocytes Absolute Monocytes Absolute Eosinophils Absolute Basophils VBG pH VBG pCO2 VBG HCO3 VBG Base Excess Sodium Potassium Chloride Carbon Dioxide Anion Gap BUN Creatinine Est GFR ( Amer) Est GFR (Non-Af Amer) Glucose Lactic Acid 2.5 H Calcium Urine Color Urine Appearance Urine pH Ur Specific [place] Urine Protein Urine Glucose (UA) Urine Ketones Urine Blood Urine Nitrite Ur Leukocyte Esterase Urine WBC (Auto) Urine RBC (Auto) Blood Type Antibody Screen 09/25/18 19:42 Troponin I < 0.012 Impressions: Chest X-Ray 09/25/18 00:00 IMPRESSION: Right IJ central line in good position. No pneumothorax. Abdomen/Pelvis CT 09/25/18 20:50 IMPRESSION: 1. Mild inflammatory changes surrounding the left kidney which may represent sequela of recently passed urinary stone. 2. Query mild inflammatory changes surrounding the urinary bladder; correlate with urinalysis to exclude UTI. 3. Maldonado catheter in the prostatic urethra; recommend advancement into the urinary bladder. 4. Diverticulosis without inflammatory changes. Assessment & Plan - Diagnosis (1) Pyelonephritis Is this a current diagnosis for this admission?: Yes Plan: Likely secondary to traumatic replacement 48 hours ago, complicated by indwelling Maldonado with hematuria and myelodysplasia with anemia. Empiric antibiotics initiated, follow-up CBC and blood and urine culture (2) Severe sepsis Is this a current diagnosis for this admission?: Yes Plan: Secondary to #1, ICU admission, IV fluid challenge, Levophed as needed, follow- up blood and urine culture (3) Anemia Is this a current diagnosis for this admission?: Yes Plan: Multifactorial secondary to myelodysplasia lower GI bleed likely diverticular and hematuria. 2 units of packed red blood cells transfusing, follow-up CBC and hematology oncology consult (4) Lower GI bleed Is this a current diagnosis for this admission?: Yes Plan: Patient refuses invasive management, suitable as no GI or certified ophthalmic surgical assistant available for doing so. Follow-up CBC, transfuse as needed hemoglobin less than 8 (5) Hematuria Is this a current diagnosis for this admission?: Yes Plan: Likely secondary to traumatic Maldonado placement, patient refuses invasive management. Continue TBI follow-up CBC. Transfuse as needed hemoglobin less than 8 (6) Acute respiratory failure Is this a current diagnosis for this admission?: Yes Plan: Secondary to volume overload, transfuse packed red blood cells and BiPAP support, consider diuretic - Time Time Spent: 50 to 70 Minutes - Inpatient Certification Medical Necessity: Need Close Monitoring Due to Risk of Patient Decompensation
[2018-09-26 05:23] LABS: ABSOLUTE RETICS # 0.044 10^6/uL (0.028-0.122); RETICULOCYTE COUNT (AUTO) 2.13 % (0.66-2.85)
[2018-09-26 06:19] LABS: FOLATE > 20.00 ng/mL (>2.76)
--- NOTE | 2018-09-26 09:22 | PDOC CONSULTATION ---
Consultation Consult Date: 09/26/18 Consult reason:: Hematology/Oncology consultation was requested for patient with anemia and acute GI bleeding History of Present Illness Admission Date/PCP: 09/26/18 03:02 DARLYN BROWNE MD History of Present Illness: KERA CAMPBELL I is a 83 year old male who has been followed for quite some time for myelodysplasia and anemia of chronic renal disease. He has been receiving erythropoetin injections for this and has remained stable recently. However, patient states that shortly after he returned home after having his Maldonado Catheter exchanged, he developed a shaking chill that would not go away, He also had increased bright red blood in his stool and then became constipated. He developed sudden weakness and was brought to the hospital by family. He was found to have Heme+ stools and HGB 9.6. He was also found to have fever and hypotension most likely due to sepsis. Urine culture is now growing gram negative rods. His HGB dropped to 7.9 and he is receiving pRBC transfusion now. He is on BiPAP machine and states that he is feeling better. His son remains at bedside. Past Medical History Cardiac Medical History: Reports: Atrial Fibrillation, Coronary Artery Disease, Myocardial Infarction - 2015, Hyperlipidema, Hypertension EENT Medical History: Reports: Other - Myelodysplasia Renal/ Medical History: Reports: Other - BPH with chronic inswelling Maldonado Malignancy Medical History: Reports: Other - Myelodysplasia with anemia GI Medical History: Reports: None Musculoskeltal Medical History: Reports: None Skin Medical History: Reports: None Psychiatric Medical History: Reports: None Hematology: Reports: Anemia, Other - Myelodysplasia Infectious Medical History: Reports: None Past Surgical History Past Surgical History: Reports: Appendectomy, Coronary Artery Bypass Graft - Triple, Other - Hemorrhoidectomy Social History Occupation: Retired [employer] Employee. He has 3 children and 7 grandchildren. Lives with: Family Smoking Status: Current Every Day Smoker Frequency of Alcohol Use: None Hx Recreational Drug Use: No Drugs: None Hx Prescription Drug Abuse: No - Advance Directive Resuscitation Status: Full Code Family History Family History: CAD Parental Family History Reviewed: Yes - Both of CAD Children Family History Reviewed: Yes Sibling(s) Family History Reviewed.: Yes Medication/Allergy Home Medications: Atorvastatin Calcium [Lipitor 40 mg Tablet] 40 mg PO DAILY 09/26/18 Calcitriol [Rocaltrol 0.25 mcg Capsule] 0.25 mcg PO MOWEFR@1000 09/26/18 Clonazepam [Klonopin 1 mg Tablet] 1 mg PO Q12HP PRN 09/26/18 Dutasteride 0.5 mg PO DAILY 09/26/18 Metoprolol Tartrate [Lopressor 50 mg Tablet] 50 mg PO Q12 09/26/18 Nitroglycerin [Nitrostat 0.4 mg (1/150 Gr) Tabs 25/Bottle] 0.4 mg PO Q5MP PRN 09/26/18 Sertraline HCl [Zoloft 50 mg Tablet] 50 mg PO DAILY 09/26/18 Tamsulosin HCl [Flomax 0.4 mg Cap.sr] 0.4 mg PO BID 09/26/18 Allergies/Adverse Reactions: prednisone [Prednisone] Allergy (Verified 09/25/18 19:16) Penicillins Adverse Reaction (Unknown, Verified 09/25/18 21:52) Hallucinations Review of Systems Constitutional: PRESENT: chills, fatigue, fever(s) Eyes: ABSENT: visual disturbances Ears: ABSENT: hearing changes Nose, Mouth, and Throat: ABSENT: sore throat Cardiovascular: ABSENT: chest pain Respiratory: ABSENT: dyspnea Gastrointestinal: PRESENT: constipation, hematochezia Genitourinary: PRESENT: as per HPI Integumentary: ABSENT: rash Neurological: PRESENT: weakness Endocrine: PRESENT: cold intolerance Hematologic/Lymphatic: ABSENT: lymphadenopathy Physical Exam Vital Signs: Temp Pulse Resp BP Pulse Ox 99.5 F 75 15 99/53 L 99 09/25/18 22:00 09/26/18 07:53 09/26/18 08:50 09/26/18 08:50 09/26/18 08:50 Intake & Output 09/25/18 09/26/18 09/27/18 06:59 06:59 06:59 Intake Total 3196 1050 Balance 3196 1050 Weight 78.3 kg General appearance: PRESENT: thin Exam: 83 year old male. Head exam: PRESENT: normocephalic Eye exam: PRESENT: PERRLA Mouth exam: PRESENT: dry mucosa Neck exam: ABSENT: lymphadenopathy, tenderness Respiratory exam: PRESENT: clear to auscultation luz, unlabored Cardiovascular exam: PRESENT: RRR Vascular exam: PRESENT: pallor GI/Abdominal exam: PRESENT: soft. ABSENT: organolmegaly, tenderness Rectal exam: PRESENT: deferred Extremities exam: ABSENT: pedal edema Musculoskeletal exam: PRESENT: normal inspection Neurological exam: PRESENT: alert, awake, oriented to person, oriented to place, oriented to time, oriented to situation Psychiatric exam: PRESENT: appropriate affect Skin exam: PRESENT: pallor Results Laboratory Results: 09/26/18 00:45 09/25/18 19:42 09/25/18 09/25/18 09/25/18 19:42 19:42 19:42 WBC 21.2 H RBC 2.51 L Hgb 9.6 L Hct 28.5 L MCV 113 H MCH 38.1 H MCHC 33.6 RDW 17.3 H Plt Count 107 L Seg Neutrophils % Not Reportable Lymphocytes % Not Reportable Monocytes % Not Reportable Eosinophils % Not Reportable Basophils % Not Reportable Absolute Neutrophils Not Reportable Absolute Lymphocytes Not Reportable Absolute Monocytes Not Reportable Absolute Eosinophils Not Reportable Absolute Basophils Not Reportable Retic Count (auto) Absolute Retic VBG pH VBG pCO2 VBG HCO3 VBG Base Excess Sodium 140.0 Potassium 3.9 Chloride 107 Carbon Dioxide 24 Anion Gap 9 BUN 29 H Creatinine 1.58 H Est GFR ( Amer) 51 L Est GFR (Non-Af Amer) 42 L Glucose 66 L Lactic Acid Calcium 9.1 Iron TIBC % Saturation Ferritin Vitamin B12 Folate Urine Color Urine Appearance Urine pH Ur Specific [place] Urine Protein Urine Glucose (UA) Urine Ketones Urine Blood Urine Nitrite Ur Leukocyte Esterase Urine WBC (Auto) Urine RBC (Auto) Blood Type O NEGATIVE Antibody Screen NEGATIVE 09/25/18 09/25/18 09/25/18 21:21 21:25 22:30 WBC RBC Hgb Hct MCV MCH MCHC RDW Plt Count Seg Neutrophils % Lymphocytes % Monocytes % Eosinophils % Basophils % Absolute Neutrophils Absolute Lymphocytes Absolute Monocytes Absolute Eosinophils Absolute Basophils Retic Count (auto) Absolute Retic VBG pH 7.36 VBG pCO2 43.9 VBG HCO3 24.4 VBG Base Excess -1.2 Sodium Potassium Chloride Carbon Dioxide Anion Gap BUN Creatinine Est GFR ( Amer) Est GFR (Non-Af Amer) Glucose Lactic Acid 2.3 H Calcium Iron TIBC % Saturation Ferritin Vitamin B12 Folate Urine Color YELLOW Urine Appearance TURBID Urine pH 6.0 Ur Specific [place] 1.022 Urine Protein >=500 H Urine Glucose (UA) NEGATIVE Urine Ketones NEGATIVE Urine Blood LARGE H Urine Nitrite NEGATIVE Ur Leukocyte Esterase MODERATE H Urine WBC (Auto) >182 Urine RBC (Auto) >182 Blood Type Antibody Screen 09/25/18 09/26/18 09/26/18 23:40 00:45 00:45 WBC Cancelled 50.0 H* D RBC Cancelled 2.08 L Hgb Cancelled 7.9 L Hct Cancelled 23.5 L MCV Cancelled 113 H MCH Cancelled 37.9 H MCHC Cancelled 33.4 RDW Cancelled 17.5 H Plt Count Cancelled 92 L Seg Neutrophils % Lymphocytes % Monocytes % Eosinophils % Basophils % Absolute Neutrophils Absolute Lymphocytes Absolute Monocytes Absolute Eosinophils Absolute Basophils Retic Count (auto) 2.13 Absolute Retic 0.044 VBG pH VBG pCO2 VBG HCO3 VBG Base Excess Sodium Potassium Chloride Carbon Dioxide Anion Gap BUN Creatinine Est GFR ( Amer) Est GFR (Non-Af Amer) Glucose Lactic Acid Calcium Iron TIBC % Saturation Ferritin Vitamin B12 Folate Urine Color Urine Appearance Urine pH Ur Specific [place] Urine Protein Urine Glucose (UA) Urine Ketones Urine Blood Urine Nitrite Ur Leukocyte Esterase Urine WBC (Auto) Urine RBC (Auto) Blood Type Antibody Screen 09/26/18 09/26/18 00:45 02:38 WBC RBC Hgb Hct MCV MCH MCHC RDW Plt Count Seg Neutrophils % Lymphocytes % Monocytes % Eosinophils % Basophils % Absolute Neutrophils Absolute Lymphocytes Absolute Monocytes Absolute Eosinophils Absolute Basophils Retic Count (auto) Absolute Retic VBG pH VBG pCO2 VBG HCO3 VBG Base Excess Sodium Potassium Chloride Carbon Dioxide Anion Gap BUN Creatinine Est GFR ( Amer) Est GFR (Non-Af Amer) Glucose Lactic Acid 2.5 H Calcium Iron 21.0 L TIBC 265 % Saturation 8 Ferritin 107.00 Vitamin B12 > 1000.0 H Folate > 20.00 Urine Color Urine Appearance Urine pH Ur Specific [place] Urine Protein Urine Glucose (UA) Urine Ketones Urine Blood Urine Nitrite Ur Leukocyte Esterase Urine WBC (Auto) Urine RBC (Auto) Blood Type Antibody Screen 09/25/18 19:42 Troponin I < 0.012 Impressions: Chest X-Ray 09/25/18 00:00 IMPRESSION: Right IJ central line in good position. No pneumothorax. Abdomen/Pelvis CT 09/25/18 20:50 IMPRESSION: 1. Mild inflammatory changes surrounding the left kidney which may represent sequela of recently passed urinary stone. 2. Query mild inflammatory changes surrounding the urinary bladder; correlate with urinalysis to exclude UTI. 3. Maldonado catheter in the prostatic urethra; recommend advancement into the urinary bladder. 4. Diverticulosis without inflammatory changes. Assessment & Plan - Diagnosis (1) Rectal bleeding Is this a current diagnosis for this admission?: Yes Plan: Receiving 2 units pRBCs now. Recent iron studies have been normal. No evidence of iron deficiency. (2) Anemia Qualifiers: Chronic kidney disease stage: stage 3 (moderate) Is this a current diagnosis for this admission?: Yes Plan: On erythropoeitin. Will continue as outpatient. Continue blood transfusions as needed. Patient has declined any colonoscopy or other invasive treatments. - Plan Summary Plan Summary: I will continue to follow him. Please call me with any questions or concerns.
[2018-09-26] MEDS ORDERED: VANCOMYCIN HCL 0 MG in DEXTROSE 5%-WATER 250 ML IV NR (09:45)
[2018-09-26 10:47] LABS: PATH REVIEW PATHOLOGIST REVIEWED
[2018-09-26] MEDS: RINGERS SOLUTION,LACTATED 1,000 ML IV PRN ×2 (11:15→17:56)
[2018-09-26] MEDS: MEROPENEM 1 GM in NORMAL SALINE 50 ML IV SCH ×2 (11:23→23:46)
[2018-09-26] MEDS ORDERED: METRONIDAZOLE 500 MG/NS RTU 500 MG/100 ML RTUPB IV SCH (12:00)
[2018-09-26] MEDS: ACETAMINOPHEN 325 MG TABLET PO PRN ×2 (12:33→19:06)
[2018-09-26] MEDS ORDERED: NITROGLYCERIN 0.4 MG/TAB 25 TAB/BOTTLE SL PRN (17:17)
[2018-09-26] MEDS: CLONAZEPAM 1 MG TABLET PO PRN (17:40)
[2018-09-26 19:56] LABS: HEMATOCRIT 30.1 % (37.9-51.0); RED BLOOD COUNT 2.84 10^6/uL (4.35-5.55); RED CELL DISTRIBUTION WIDTH 22.5 % (11.5-14.0)
[2018-09-26 20:06] LABS: PLATELET COUNT 80 10^3/uL (150-450)
[2018-09-26 20:07] LABS: MEAN CORPUSCULAR VOLUME 106 fl (80-97)
[2018-09-26 20:08] LABS: HEMOGLOBIN 10.2 g/dL (13.5-17.0)
[2018-09-26 20:11] LABS: WHITE BLOOD COUNT 47.6 10^3/uL (4.0-10.5)
[2018-09-26] MEDS: METOPROLOL TARTRATE 50 MG TABLET PO SCH (23:34)
[2018-09-26] MEDS: ATORVASTATIN CALCIUM 40 MG TABLET PO SCH (23:44)
[2018-09-26] MEDS: VANCOMYCIN HCL 1,000 MG in DEXTROSE 5%-WATER 250 ML IV SCH (23:46)
[2018-09-27] MEDS: ACETAMINOPHEN 325 MG TABLET PO PRN ×2 (03:03→16:38)
[2018-09-27 05:35] LABS: ANION GAP 6 (5-19); BLOOD UREA NITROGEN 27 mg/dL (7-20); CALCIUM 8.6 mg/dL (8.4-10.2); CARBON DIOXIDE 25 mmol/L (22-30); CHLORIDE 109 mmol/L (98-107); POTASSIUM 4.1 mmol/L (3.6-5.0); SODIUM 140.2 mmol/L (137-145)
[2018-09-27 05:36] LABS: HEMATOCRIT 27.6 % (37.9-51.0); HEMOGLOBIN 9.4 g/dL (13.5-17.0); MEAN CORPUSCULAR HGB CONC 33.9 g/dL (32.0-36.0); MEAN CORPUSCULAR VOLUME 106 fl (80-97); RED CELL DISTRIBUTION WIDTH 22.5 % (11.5-14.0)
[2018-09-27 05:37] LABS: INTERNATIONAL RATION (INR) 1.36; PROTHROMBIN TIME 17.5 SEC (11.4-15.4)
[2018-09-27 05:39] LABS: PLATELET COUNT 67 10^3/uL (150-450)
[2018-09-27 05:42] LABS: GLUCOSE 68 mg/dL (75-110)
[2018-09-27 06:02] LABS: ABSOLUTE LYMPHOCYTES# (MANUAL) 0.4 10^3/uL (0.5-4.7); ABSOLUTE NEUTROPHILS# (MANUAL) 36.7 10^3/uL (1.7-8.2); BASOPHILS % (MANUAL) 0 % (0-2); EOSINOPHILS % (MANUAL) 0 % (0-6); LYMPHOCYTES % (MANUAL) 1 % (13-45); MONOCYTES % (MANUAL) 5 % (3-13); SEGMENTED NEUTROPHILS % (MAN) 94 % (42-78); TOTAL CELLS COUNTED 100
[2018-09-27 06:05] LABS: ANISOCYTOSIS 3+; PLATELET COMMENT DECREASED; POLYCHROMASIA 2+
--- NOTE | 2018-09-27 06:56 | PDOC PROGRESS REPORT ---
Subjective Progress Note for:: 09/27/18 Subjective:: Patient states that he is feeling better this morning. Still a bit short of breath. Had a good BM earlier. No obvious bleeding, but black stool. Reason For Visit: SEVERE SEPSIS,PYELONEPHRITIS,LOWER GI BLEED,ANEMIA Physical Exam Vital Signs: Temp Pulse Resp BP Pulse Ox 99.9 F 75 17 121/65 98 09/26/18 21:46 09/26/18 21:46 09/27/18 06:00 09/27/18 05:43 09/27/18 06:00 Intake & Output 09/25/18 09/26/18 09/27/18 06:59 06:59 06:59 Intake Total 3196 2587 Output Total 3175 Balance 3196 -588 Weight 78.3 kg 73.4 kg General appearance: PRESENT: well-developed, well-nourished Head exam: PRESENT: normocephalic Respiratory exam: PRESENT: wheezes - Bilaterally Cardiovascular exam: PRESENT: RRR GI/Abdominal exam: PRESENT: tenderness - RUQ Extremities exam: ABSENT: pedal edema Neurological exam: PRESENT: alert, awake, oriented to person, oriented to place, oriented to time, oriented to situation Psychiatric exam: PRESENT: appropriate affect Skin exam: PRESENT: normal color Results Laboratory Results: 09/27/18 04:58 09/27/18 04:58 09/26/18 09/26/18 09/26/18 00:45 18:20 19:35 WBC 50.0 H* D 47.6 H* RBC 2.84 L Hgb 10.2 L D Hct 30.1 L MCV 106 H D MCH 36.0 H MCHC 34.0 RDW 22.5 H Plt Count 80 L Seg Neutrophils % Lymphocytes % Monocytes % Eosinophils % Basophils % Absolute Neutrophils Absolute Lymphocytes Absolute Monocytes Absolute Eosinophils Absolute Basophils Sodium Potassium Chloride Carbon Dioxide Anion Gap BUN Creatinine Est GFR ( Amer) Est GFR (Non-Af Amer) Glucose Lactic Acid 1.3 Calcium Magnesium 09/27/18 09/27/18 04:58 04:58 WBC 39.0 H* RBC 2.60 L Hgb 9.4 L Hct 27.6 L MCV 106 H MCH 36.0 H MCHC 33.9 RDW 22.5 H Plt Count 67 L Seg Neutrophils % Not Reportable Lymphocytes % Not Reportable Monocytes % Not Reportable Eosinophils % Not Reportable Basophils % Not Reportable Absolute Neutrophils Not Reportable Absolute Lymphocytes Not Reportable Absolute Monocytes Not Reportable Absolute Eosinophils Not Reportable Absolute Basophils Not Reportable Sodium 140.2 Potassium 4.1 Chloride 109 H Carbon Dioxide 25 Anion Gap 6 BUN 27 H Creatinine 1.36 H Est GFR ( Amer) > 60 Est GFR (Non-Af Amer) 50 L Glucose 68 L Lactic Acid Calcium 8.6 Magnesium 1.7 09/25/18 19:42 Troponin I < 0.012 Impressions: Chest X-Ray 09/25/18 00:00 IMPRESSION: Right IJ central line in good position. No pneumothorax. Abdomen/Pelvis CT 09/25/18 20:50 IMPRESSION: 1. Mild inflammatory changes surrounding the left kidney which may represent sequela of recently passed urinary stone. 2. Query mild inflammatory changes surrounding the urinary bladder; correlate with urinalysis to exclude UTI. 3. Maldonado catheter in the prostatic urethra; recommend advancement into the urinary bladder. 4. Diverticulosis without inflammatory changes. Assessment & Plan - Diagnosis (1) Rectal bleeding Is this a current diagnosis for this admission?: Yes Plan: Patient has declined colonoscopy, EGD, or other invasive procedures. His stool is still black. (2) Anemia Qualifiers: Anemia type: due to chronic kidney disease Chronic kidney disease stage: stage 3 (moderate) Qualified Code(s): N18.3 - Chronic kidney disease, stage 3 (moderate); D63.1 - Anemia in chronic kidney disease Is this a current diagnosis for this admission?: Yes Plan: His baseline HGB is 9-10. He is taking erythropoetin regularly to maintain his blood counts. Acute bleeding appears to have slowed. Will continue to transfuse if needed. (3) Thrombocytopenia Is this a current diagnosis for this admission?: Yes Plan: Most likely consumptive. Will follow. No anti-coagulation due to active bleeding. (4) Sepsis Qualifiers: Sepsis type: sepsis due to unspecified organism Qualified Code(s): A41.9 - Sepsis, unspecified organism Is this a current diagnosis for this admission?: Yes Plan: He has Gram+cocci in 2 blood cultures. Most likely respiratory source, but unclear at this point. He is on Vanc and merropenum. Adjust based on further culture results. Watch Cr. (5) Acute renal failure Is this a current diagnosis for this admission?: Yes Plan: From Sepsis. Slowly improving. - Plan Summary Plan Summary: Patient currently NPO and asking for breakfast. Since he has refused any procedures, will go ahead and give him regular diet.
[2018-09-27] MEDS: IPRATROPIUM/ALBUTEROL 0.5-2.5 MG/3 ML AMPUL NEB PRN (07:57)
[2018-09-27] MEDS ORDERED: (PENDING PHARMACY ID) (Vitamin E [Vitamin E] 400 UNIT) PO SCH (10:00)
[2018-09-27] MEDS ORDERED: (PENDING PHARMACY ID) (Pyridoxine Hcl [Vitamin B-6] 100 MG) PO SCH (10:00)
[2018-09-27] MEDS: SERTRALINE HCL 50 MG TABLET PO SCH (10:03)
[2018-09-27] MEDS: PYRIDOXINE HCL 50 MG TABLET PO SCH (10:03)
[2018-09-27] MEDS: VITAMIN E (DL, ACETATE) 400 UNIT CAPSULE PO SCH (10:03)
[2018-09-27] MEDS: DUTASTERIDE 0.5 MG CAPSULE PO SCH (10:05)
[2018-09-27] MEDS: MEROPENEM 1 GM in NORMAL SALINE 50 ML IV SCH ×2 (10:05→22:29)
[2018-09-27] MEDS: METOPROLOL TARTRATE 50 MG TABLET PO SCH ×2 (10:05→22:28)
[2018-09-27] MEDS: CLONAZEPAM 1 MG TABLET PO PRN ×2 (10:11→22:29)
--- NOTE | 2018-09-27 18:02 | PDOC PROGRESS REPORT ---
Subjective Progress Note for:: 09/27/18 Subjective:: No adverse events overnight. No new complaints. He says he is hungry and his diet was advanced this morning. Blood pressures are good and he is been off pressors overnight. No abdominal pain. Has a cough but it has been nonproductive. Reason For Visit: SEVERE SEPSIS,PYELONEPHRITIS,LOWER GI BLEED,ANEMIA Physical Exam Vital Signs: Temp Pulse Resp BP Pulse Ox 98.7 F 77 18 158/77 H 100 09/27/18 16:33 09/27/18 16:33 09/27/18 16:33 09/27/18 16:33 09/27/18 16:33 Intake & Output 09/26/18 09/27/18 09/28/18 06:59 06:59 06:59 Intake Total 3196 2637 350 Output Total 3175 1270 Balance 3190 -538 -920 Weight 78.3 kg 73.4 kg General appearance: PRESENT: no acute distress, cooperative Respiratory exam: PRESENT: rhonchi - Bilateral, symmetrical, unlabored. ABSENT: accessory muscle use, crackles, prolonged expiratory phas, tachypnea, wheezes Cardiovascular exam: PRESENT: RRR, +S1, +S2 Pulses: PRESENT: normal carotid pulses Vascular exam: PRESENT: normal capillary refill GI/Abdominal exam: PRESENT: normal bowel sounds, soft. ABSENT: distended, guarding, rebound, tenderness Extremities exam: ABSENT: clubbing, pedal edema Musculoskeletal exam: PRESENT: normal inspection. ABSENT: deformity Neurological exam: PRESENT: alert, awake, oriented to person, oriented to place, oriented to time, oriented to situation Psychiatric exam: PRESENT: appropriate affect, normal mood Skin exam: PRESENT: dry, warm Results Laboratory Results: 09/27/18 04:58 09/27/18 04:58 09/26/18 09/26/18 09/27/18 18:20 19:35 04:58 WBC 47.6 H* 39.0 H* RBC 2.84 L 2.60 L Hgb 10.2 L D 9.4 L Hct 30.1 L 27.6 L MCV 106 H D 106 H MCH 36.0 H 36.0 H MCHC 34.0 33.9 RDW 22.5 H 22.5 H Plt Count 80 L 67 L Seg Neutrophils % Not Reportable Lymphocytes % Not Reportable Monocytes % Not Reportable Eosinophils % Not Reportable Basophils % Not Reportable Absolute Neutrophils Not Reportable Absolute Lymphocytes Not Reportable Absolute Monocytes Not Reportable Absolute Eosinophils Not Reportable Absolute Basophils Not Reportable Sodium Potassium Chloride Carbon Dioxide Anion Gap BUN Creatinine Est GFR ( Amer) Est GFR (Non-Af Amer) Glucose Lactic Acid 1.3 Calcium Magnesium 09/27/18 04:58 WBC RBC Hgb Hct MCV MCH MCHC RDW Plt Count Seg Neutrophils % Lymphocytes % Monocytes % Eosinophils % Basophils % Absolute Neutrophils Absolute Lymphocytes Absolute Monocytes Absolute Eosinophils Absolute Basophils Sodium 140.2 Potassium 4.1 Chloride 109 H Carbon Dioxide 25 Anion Gap 6 BUN 27 H Creatinine 1.36 H Est GFR ( Amer) > 60 Est GFR (Non-Af Amer) 50 L Glucose 68 L Lactic Acid Calcium 8.6 Magnesium 1.7 09/25/18 19:42 Troponin I < 0.012 Impressions: Chest X-Ray 09/25/18 00:00 IMPRESSION: Right IJ central line in good position. No pneumothorax. Abdomen/Pelvis CT 09/25/18 20:50 IMPRESSION: 1. Mild inflammatory changes surrounding the left kidney which may represent sequela of recently passed urinary stone. 2. Query mild inflammatory changes surrounding the urinary bladder; correlate with urinalysis to exclude UTI. 3. Maldonado catheter in the prostatic urethra; recommend advancement into the urinary bladder. 4. Diverticulosis without inflammatory changes. Assessment & Plan - Diagnosis (1) Severe sepsis Is this a current diagnosis for this admission?: Yes Plan: Resolved (2) Bacteremia Is this a current diagnosis for this admission?: Yes Plan: He has 2 organisms growing in both sets of cultures. Once gram-positive and the other gram-negative. On broad-spectrum antibiotics. We will follow-up culture results before deciding on further management. (3) Acute respiratory failure Qualifiers: Respiratory failure complication: hypoxia Qualified Code(s): J96.01 - Acute respiratory failure with hypoxia Is this a current diagnosis for this admission?: Yes Plan: Acute on chronic. Resolved. Back on his usual 2 L per nasal cannula. (4) Anemia Qualifiers: Anemia type: due to chronic kidney disease Chronic kidney disease stage: stage 3 (moderate) Qualified Code(s): N18.3 - Chronic kidney disease, stage 3 (moderate); D63.1 - Anemia in chronic kidney disease Is this a current diagnosis for this admission?: Yes Plan: Monitoring blood counts. Will transfuse if needed. Being followed by he [facility]. (5) Pyelonephritis Is this a current diagnosis for this admission?: Yes Plan: Following blood and urine cultures. Currently on broad-spectrum antibiotic coverage. (6) Rectal bleeding Is this a current diagnosis for this admission?: Yes Plan: He has told us he does not want a colonoscopy. Bleeding seems to have stopped. Following blood counts. - Time Time Spent with patient: 25-34 minutes
[2018-09-27] MEDS: ATORVASTATIN CALCIUM 40 MG TABLET PO SCH (22:28)
[2018-09-27] MEDS: VANCOMYCIN HCL 1,000 MG in DEXTROSE 5%-WATER 250 ML IV SCH (23:08)
[2018-09-28] MEDS: IPRATROPIUM/ALBUTEROL 0.5-2.5 MG/3 ML AMPUL NEB PRN (00:42)
[2018-09-28] MEDS: METOPROLOL TARTRATE 50 MG TABLET PO SCH ×2 (10:05→22:04)
[2018-09-28] MEDS: PYRIDOXINE HCL 50 MG TABLET PO SCH (10:06)
[2018-09-28] MEDS: CLONAZEPAM 1 MG TABLET PO PRN ×2 (10:06→22:07)
[2018-09-28] MEDS: VITAMIN E (DL, ACETATE) 400 UNIT CAPSULE PO SCH (10:06)
[2018-09-28] MEDS: MEROPENEM 1 GM in NORMAL SALINE 50 ML IV SCH ×2 (10:06→22:03)
[2018-09-28] MEDS: SERTRALINE HCL 50 MG TABLET PO SCH (10:06)
[2018-09-28] MEDS: DUTASTERIDE 0.5 MG CAPSULE PO SCH (10:06)
[2018-09-28] MEDS: FAMOTIDINE 20 MG TABLET PO SCH ×2 (10:07→17:42)
[2018-09-28] MEDS ORDERED: DEXTROSE 5%-1/4 NORMAL SALINE 1,000 ML IV PRN (11:49)
[2018-09-28] MEDS ORDERED: GUAIFENESIN SYRP 200 MG/10 ML UDC PO PRN (11:57)
[2018-09-28] MEDS ORDERED: LOPERAMIDE HCL 2 MG CAPSULE PO PRN (14:17)
--- NOTE | 2018-09-28 14:39 | PDOC PROGRESS REPORT ---
Subjective Progress Note for:: 09/28/18 Subjective:: Patient is seen resting in bed. He is awake alert, oriented x3. He states he does not feel so good today. He is weak and tired. He has no appetite. He denies any nausea or abdominal pain. He has had some diarrhea this morning. He denies fevers or chills. He continues to have mild right-sided flank tenderness. He denies any other arthralgias or myalgias. His son and daughter at the bedside as well. Remaining review of systems are negative. Reason For Visit: SEVERE SEPSIS,PYELONEPHRITIS,LOWER GI BLEED,ANEMIA Physical Exam Vital Signs: Temp Pulse Resp BP Pulse Ox 97.8 F 64 18 151/68 H 98 09/28/18 12:22 09/28/18 12:22 09/28/18 12:22 09/28/18 12:22 09/28/18 12:22 Intake & Output 09/27/18 09/28/18 09/29/18 06:59 06:59 06:59 Intake Total 2887 775 50 Output Total 3175 2095 Balance -288 -1320 50 Weight 73.4 kg 77.7 kg General appearance: PRESENT: no acute distress, well-developed, well-nourished Head exam: PRESENT: atraumatic, normocephalic Eye exam: PRESENT: conjunctiva pale, EOMI, PERRLA. ABSENT: scleral icterus Ear exam: PRESENT: other - 1 cm open sore on his left ear pinna Mouth exam: PRESENT: dry mucosa, neck supple, tongue midline Neck exam: ABSENT: carotid bruit, JVD, lymphadenopathy, thyromegaly Respiratory exam: PRESENT: clear to auscultation luz. ABSENT: rales, rhonchi, wheezes Cardiovascular exam: PRESENT: RRR. ABSENT: diastolic murmur, rubs, systolic murmur Pulses: PRESENT: normal dorsalis pedis pul Vascular exam: PRESENT: normal capillary refill GI/Abdominal exam: PRESENT: normal bowel sounds, soft. ABSENT: distended, guarding, mass, organolmegaly, rebound, tenderness Rectal exam: PRESENT: deferred Extremities exam: PRESENT: full ROM. ABSENT: calf tenderness, clubbing, pedal edema Neurological exam: PRESENT: alert, awake, oriented to person, oriented to place, oriented to time, oriented to situation, CN II-XII grossly intact. ABSENT: motor sensory deficit Psychiatric exam: PRESENT: appropriate affect, normal mood. ABSENT: homicidal ideation, suicidal ideation Skin exam: PRESENT: dry, intact, warm. ABSENT: cyanosis, rash Results Laboratory Results: 09/27/18 04:58 09/27/18 04:58 09/25/18 22:30 Blood Blood Culture - Final Mrsa (Meth Resis Staph Aureus) Klebsiella Pneumoniae 09/25/18 19:42 Troponin I < 0.012 Impressions: Chest X-Ray 09/25/18 00:00 IMPRESSION: Right IJ central line in good position. No pneumothorax. Abdomen/Pelvis CT 09/25/18 20:50 IMPRESSION: 1. Mild inflammatory changes surrounding the left kidney which may represent sequela of recently passed urinary stone. 2. Query mild inflammatory changes surrounding the urinary bladder; correlate with urinalysis to exclude UTI. 3. Maldonado catheter in the prostatic urethra; recommend advancement into the urinary bladder. 4. Diverticulosis without inflammatory changes. Assessment & Plan - Diagnosis (1) Bacteremia Is this a current diagnosis for this admission?: Yes Plan: Patient has 2 out of 2 blood cultures positive for MRSA and Klebsiella pneumonia. Is presently on IV meropenem and vancomycin. Blood cultures x2 are repeated. Consult was placed for Dr. Barkley, infectious disease. Patient's urine cultures positive for gram-negative rods. Continues to have some mild left flank pain. CT the abdomen pelvis showed possible pial left kidney. (2) Pyelonephritis Is this a current diagnosis for this admission?: Yes Plan: He still has mild left CVA tenderness. Much improved he states from his admission. (3) Leukocytosis Is this a current diagnosis for this admission?: Yes Plan: White count peaked at 50,000. Yesterday was 39,000 will check again tomorrow. Dr. Obando, hematology, is following him for his anemia as well (4) Anemia Qualifiers: Anemia type: due to chronic kidney disease Chronic kidney disease stage: stage 3 (moderate) Qualified Code(s): N18.3 - Chronic kidney disease, stage 3 (moderate); D63.1 - Anemia in chronic kidney disease Is this a current diagnosis for this admission?: Yes Plan: Appears to be stable. He has had no further rectal bleeding. He has refused any invasive workup for bleeding (5) Rectal bleeding Is this a current diagnosis for this admission?: Yes Plan: This has resolved. (6) Septic shock Is this a current diagnosis for this admission?: Yes Plan: Resolved with IV fluids and IV antibiotics. Again he has MRSA and Klebsiella pneumonia growing 2 out of 2 blood cultures. Urine culture is positive for gram-negative rods. He has fever, hypotension requiring fluid resuscitation and vasopressor support overnight, leukocytosis and tachycardia (7) Thrombocytopenia Is this a current diagnosis for this admission?: Yes - Time Time Spent with patient: 25-34 minutes Total Critical Time (Minutes): 30 Medications reviewed and adjusted accordingly: Yes - Inpatient Certification Based on my medical assessment, after consideration of the patient's comorbidities, presenting symptoms, or acuity I expect that the services needed warrant INPATIENT care.: Yes I certify that my determination is in accordance with my understanding of Medicare's requirements for reasonable and necessary INPATIENT services [42 CFR 412.3e].: Yes Medical Necessity: Need for IV Antibiotics, Risk of Complication if Not Cared For in Hospital
[2018-09-28] MEDS: LACTOBACILLUS ACIDOPHILUS 250 MG TAB PO SCH (17:39)
[2018-09-28] MEDS: VANCOMYCIN HCL 1,000 MG in DEXTROSE 5%-WATER 250 ML IV SCH (22:02)
[2018-09-28] MEDS: ATORVASTATIN CALCIUM 40 MG TABLET PO SCH (22:03)
[2018-09-28] MEDS: CLOTRIMAZOLE 1% CREAM 15 GM TP SCH (22:06)
[2018-09-28 23:04] LABS: VANCOMYCIN,TROUGH 11.4 ug/mL (5.0-20.0)
[2018-09-29] MEDS: ACETAMINOPHEN 325 MG TABLET PO PRN (03:58)
[2018-09-29] MEDS: CLOTRIMAZOLE 1% CREAM 15 GM TP SCH ×3 (05:53→21:46)
[2018-09-29] MEDS: CALCITRIOL 0.25 MCG CAPSULE PO SCH (08:06)
[2018-09-29 08:27] LABS: BLOOD UREA NITROGEN 18 mg/dL (7-20); CALCIUM 8.8 mg/dL (8.4-10.2); GLUCOSE 98 mg/dL (75-110)
[2018-09-29 08:32] LABS: ANION GAP 6 (5-19); CARBON DIOXIDE 27 mmol/L (22-30); CHLORIDE 105 mmol/L (98-107); HEMOGLOBIN 10.4 g/dL (13.5-17.0); MEAN CORPUSCULAR HEMOGLOBIN 36.3 pg (27.0-33.4); MEAN CORPUSCULAR HGB CONC 34.8 g/dL (32.0-36.0); MEAN CORPUSCULAR VOLUME 104 fl (80-97); RED BLOOD COUNT 2.88 10^6/uL (4.35-5.55); RED CELL DISTRIBUTION WIDTH 20.8 % (11.5-14.0); SODIUM 137.8 mmol/L (137-145); WHITE BLOOD COUNT 8.2 10^3/uL (4.0-10.5)
[2018-09-29 09:10] LABS: PLATELET COUNT 71 10^3/uL (150-450)
[2018-09-29 09:12] LABS: ABSOLUTE LYMPHOCYTES# (MANUAL) 0.8 10^3/uL (0.5-4.7); ABSOLUTE MONOCYTES # (MANUAL) 1.9 10^3/uL (0.1-1.4); ABSOLUTE NEUTROPHILS# (MANUAL) 3.8 10^3/uL (1.7-8.2); BAND NEUTROPHILS % (MANUAL) 2 % (3-5); BASOPHILS % (MANUAL) 1 % (0-2); EOSINOPHILS % (MANUAL) 20 % (0-6); LYMPHOCYTES % (MANUAL) 10 % (13-45); METAMYELOCYTES % (MANUAL) 1 % (0); MONOCYTES % (MANUAL) 23 % (3-13); SEGMENTED NEUTROPHILS % (MAN) 43 % (42-78); TOTAL CELLS COUNTED 100
[2018-09-29 09:13] LABS: ANISOCYTOSIS 2+; POLYCHROMASIA SLIGHT
[2018-09-29 09:14] LABS: OVALOCYTES 1+; PLATELET COMMENT DECREASED; POIKILOCYTOSIS 1+; SCHISTOCYTES SLIGHT; STOMATOCYTES 1+
[2018-09-29] MEDS: PYRIDOXINE HCL 50 MG TABLET PO SCH (09:54)
[2018-09-29] MEDS: VITAMIN E (DL, ACETATE) 400 UNIT CAPSULE PO SCH (09:54)
[2018-09-29] MEDS: LACTOBACILLUS ACIDOPHILUS 250 MG TAB PO SCH ×2 (09:54→17:13)
[2018-09-29] MEDS: MEROPENEM 1 GM in NORMAL SALINE 50 ML IV SCH ×2 (09:55→21:46)
[2018-09-29] MEDS: FAMOTIDINE 20 MG TABLET PO SCH ×2 (09:55→17:13)
[2018-09-29] MEDS: METOPROLOL TARTRATE 50 MG TABLET PO SCH ×2 (09:55→21:46)
[2018-09-29] MEDS: SERTRALINE HCL 50 MG TABLET PO SCH (09:55)
[2018-09-29] MEDS: DUTASTERIDE 0.5 MG CAPSULE PO SCH (09:55)
[2018-09-29] MEDS: CLONAZEPAM 1 MG TABLET PO PRN (11:05)
--- NOTE | 2018-09-29 13:10 | PDOC PROGRESS REPORT ---
Subjective Progress Note for:: 09/29/18 Subjective:: 09/29/2018 this 83-year-old male admitted for severe sepsis and pyelonephritis. Repeat blood cultures came back positive for MRSA. Comfortable in the bed communicating very well. No acute events in the last 24 hours. T-max is 97.3. Recent is presently on meropenem and vancomycin. Reason For Visit: SEVERE SEPSIS,PYELONEPHRITIS,LOWER GI BLEED,ANEMIA Physical Exam Vital Signs: Temp Pulse Resp BP Pulse Ox 97.3 F 56 L 18 149/69 H 100 09/29/18 11:57 09/29/18 11:57 09/29/18 11:57 09/29/18 11:57 09/29/18 11:57 Intake & Output 09/28/18 09/29/18 09/30/18 06:59 06:59 06:59 Intake Total 533 631 5585 Output Total 2095 2300 Balance -1320 -1575 1050 Weight 77.7 kg 73.4 kg General appearance: PRESENT: no acute distress Head exam: PRESENT: atraumatic Eye exam: PRESENT: PERRLA Mouth exam: PRESENT: moist, tongue midline Neck exam: ABSENT: carotid bruit, JVD, lymphadenopathy, thyromegaly Respiratory exam: PRESENT: clear to auscultation luz. ABSENT: rales, rhonchi, wheezes Cardiovascular exam: PRESENT: RRR. ABSENT: diastolic murmur, rubs, systolic murmur GI/Abdominal exam: PRESENT: normal bowel sounds, soft. ABSENT: distended, guarding, mass, organolmegaly, rebound, tenderness Gentrourinary exam: PRESENT: indwelling catheter Extremities exam: PRESENT: full ROM. ABSENT: calf tenderness, clubbing, pedal edema Neurological exam: PRESENT: alert, awake, oriented to person, oriented to place, oriented to time, oriented to situation, CN II-XII grossly intact. ABSENT: motor sensory deficit Psychiatric exam: PRESENT: appropriate affect, normal mood. ABSENT: homicidal ideation, suicidal ideation Results Laboratory Results: 09/29/18 08:00 09/29/18 08:00 09/28/18 09/29/18 09/29/18 22:32 08:00 08:00 WBC 8.2 RBC 2.88 L Hgb 10.4 L Hct 30.0 L MCV 104 H MCH 36.3 H MCHC 34.8 RDW 20.8 H Plt Count 71 L Seg Neutrophils % Not Reportable Lymphocytes % Not Reportable Monocytes % Not Reportable Eosinophils % Not Reportable Basophils % Not Reportable Absolute Neutrophils Not Reportable Absolute Lymphocytes Not Reportable Absolute Monocytes Not Reportable Absolute Eosinophils Not Reportable Absolute Basophils Not Reportable Sodium 137.8 Potassium 4.0 Chloride 105 Carbon Dioxide 27 Anion Gap 6 BUN 18 Creatinine 1.21 1.15 Est GFR ( Amer) > 60 > 60 Est GFR (Non-Af Amer) 57 L > 60 Glucose 98 Calcium 8.8 Magnesium 2.0 09/25/18 21:21 Blood Blood Culture - Final Mrsa (Meth Resis Staph Aureus) Klebsiella Pneumoniae 09/25/18 22:30 Blood Blood Culture - Final Mrsa (Meth Resis Staph Aureus) Klebsiella Pneumoniae 09/25/18 19:42 Troponin I < 0.012 Impressions: Chest X-Ray 09/25/18 00:00 IMPRESSION: Right IJ central line in good position. No pneumothorax. Abdomen/Pelvis CT 09/25/18 20:50 IMPRESSION: 1. Mild inflammatory changes surrounding the left kidney which may represent sequela of recently passed urinary stone. 2. Query mild inflammatory changes surrounding the urinary bladder; correlate with urinalysis to exclude UTI. 3. Maldonado catheter in the prostatic urethra; recommend advancement into the urinary bladder. 4. Diverticulosis without inflammatory changes. Assessment & Plan - Diagnosis (1) Bacteremia Is this a current diagnosis for this admission?: Yes Plan: Patient has 2 out of 2 blood cultures positive for MRSA and Klebsiella pneumonia. Is presently on IV meropenem and vancomycin. Blood cultures x2 are repeated. Consult was placed for Dr. Barkley, infectious disease. Patient's urine cultures positive for gram-negative rods. Continues to have some mild left flank pain. CT the abdomen pelvis showed possible pial left kidney. 09/29/2018-second set of blood cultures came back positive for MRSA. Patient is on meropenem and vancomycin. Urine cultures showing gram-negative rods and gram-positive cocci. ID consult was placed as per the previous notes. The meantime plan is to continue the present antibiotic therapy. (2) Pyelonephritis Is this a current diagnosis for this admission?: Yes Plan: 09/29/2018-patient denies any left CVA tenderness. Urine looks clear. Plan is to continue meropenem and IV vancomycin. Vanco trough is 11.4. (3) Leukocytosis Is this a current diagnosis for this admission?: Yes Plan: 09/29/2018-W BC count today is 8200. Significant improvement from the previous labs. On 09/27/2018 WBC is 39,000. Leukocytosis most likely secondary to sepsis is resolving. (4) Anemia Qualifiers: Anemia type: due to chronic kidney disease Chronic kidney disease stage: stage 3 (moderate) Qualified Code(s): N18.3 - Chronic kidney disease, stage 3 (moderate); D63.1 - Anemia in chronic kidney disease Is this a current diagnosis for this admission?: No Plan: 09/29/2018-patient is given the history of chronic anemia he follows with Dr. López as an outpatient. His hemoglobin is 10.4 today stable. Patient is complaining of slight blood from the ureteral meatus after catheter was replaced in the ER. (5) Septic shock Is this a current diagnosis for this admission?: Yes Plan: 09/29/2018-patient was admitted with septic shock blood cultures are positive for MRSA. Urine culture is positive for gram-negative rods and gram-positive cocci. On meropenem and IV vancomycin. Sepsis is resolving. During the initial days of admission he was tachycardic hypotensive requiring vasopressors. 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 He follows with Dr. López. As per assembler type bar and segment thrombocytopenia most likely secondary to consumption. - Time Time Spent with patient: 25-34 minutes Medications reviewed and adjusted accordingly: Yes Anticipated discharge: Home
[2018-09-29] MEDS: IPRATROPIUM/ALBUTEROL 0.5-2.5 MG/3 ML AMPUL NEB PRN (15:45)
[2018-09-29] MEDS: VANCOMYCIN HCL 1,500 MG in DEXTROSE 5%-WATER 250 ML IV SCH (17:13)
[2018-09-29] MEDS: TAMSULOSIN HCL 0.4 MG CAP.SR.24H PO SCH (17:13)
--- NOTE | 2018-09-29 18:03 | Progress Note ---
Provider Note Provider Note: ID Consult Note Asked to review patient's chart. Pt not seen or examined. Pt is an 83 year old man with PMH including CAD s/p CABG, AF, myelodisplasia, BPH and chronic indwelling Gutierrez. Pt recently had gutierrez changed 2 days prior to presentation on 09/26/18 with c/o shaking chills, generalized weakness, perineal pain, and syncope. He also reported 3 days of dark or maroon colored stools. He was found to be tachycardic, febrile, with gross hematuria, hypotension, leukemoid reaction and anemia. He also has thrombocytopenia. He had dry oral mucosa, no cardiac murmurs, and exquisite tenderness on palpation of prostate in the ED. His blood cultures on presentation grew MRSA and Klebsiella pneumoniae in both sets. His urine culture also has >100k cfu GNRs and 50-60 colonies of GPCs in clusters that have not yet been identified. Vancomycin and meropenem were initiated. He was transfused pRBCs also. CT scan of the abdomen with IV contrast on admission was read as showing mild inflammatory changes surrounding the L kidney and tip of the gutierrez catheter in the prostatic urethra. Initially pt required vasopressor support, which has since been discontinued. He defervesced readily. His WBC count dramatically decreased from 50,000 on presentation to now 8. Creatinine improved also from 1.5 to 1.15. Impression/Recommendations septic shock due to polymicrobial bacteremia - Methicillin resistant Staphylococcus aureus (MRSA) bacteremia and Klebsiella pneumoniae bacteremia, from a urinary source - Same morphology of organisms reported from the urine culture, with physical exam findings suggesting a prostatic source and abnormalities on CT abdomen that also corroborate a urinary source for the bacteremia (Gutierrez malposition, perinephric inflammatory changes). Shock now resolved; clinically improving. - With regard to MRSA bacteremia, continue vancomycin dosed with assistance of pharmacy to achieve goal troughs of 15-20, follow up repeat blood culture results to make sure he has cleared the bacteremia, get transthoracic echocardiogram. - For MRSA bacteremia, agents other than IV vancomycin (or IV daptomycin) are not standard of care and would not be recommended first line. - With regard to the Klebsiella, de-escalate meropenem to Rocephin 2 g daily IV - Normally, in the setting of a UTI, an indwelling Gutierrez should be replaced if still needed, to reduce risk of subsequent catheter-associated bacteriuria and UTI, particularly when it comes to biofilm forming organisms such as Staph aureus. Certainly, concern regarding urethral trauma is understandable, and as such, consider Urology input regarding Gutierrez exchange. - At a minimum, the duration of therapy should be 2 weeks from date of negative blood cultures (assuming the repeat BCx from 09/28 are negative, no other evidence develops on exam to suggest metastatic focus of infection, and TTE is negative). Andrae Barkley MD [facility] pager [phone]
[2018-09-29] MEDS: ATORVASTATIN CALCIUM 40 MG TABLET PO SCH (21:47)
[2018-09-30] MEDS: CLOTRIMAZOLE 1% CREAM 15 GM TP SCH ×3 (06:12→22:24)
[2018-09-30] MEDS: ACETAMINOPHEN 325 MG TABLET PO PRN (06:23)
[2018-09-30 06:55] LABS: HEMATOCRIT 28.9 % (37.9-51.0); MEAN CORPUSCULAR HEMOGLOBIN 36.3 pg (27.0-33.4); MEAN CORPUSCULAR HGB CONC 34.8 g/dL (32.0-36.0); MEAN CORPUSCULAR VOLUME 104 fl (80-97); RED BLOOD COUNT 2.77 10^6/uL (4.35-5.55); RED CELL DISTRIBUTION WIDTH 20.1 % (11.5-14.0); WHITE BLOOD COUNT 7.6 10^3/uL (4.0-10.5)
[2018-09-30 07:12] LABS: ALANINE AMINOTRANSFERASE 54 U/L (21-72); ALBUMIN 2.7 g/dL (3.5-5.0); ALKALINE PHOSPHATASE 102 U/L (38-126); ANION GAP 5 (5-19); ASPARTATE AMINO TRANSFERASE 57 U/L (17-59); BILIRUBIN,DIRECT 0.1 mg/dL (0.0-0.4); BILIRUBIN,TOTAL 0.5 mg/dL (0.2-1.3); BLOOD UREA NITROGEN 18 mg/dL (7-20); CALCIUM 8.2 mg/dL (8.4-10.2); CARBON DIOXIDE 29 mmol/L (22-30); CHLORIDE 103 mmol/L (98-107); GLUCOSE 112 mg/dL (75-110); POTASSIUM 3.7 mmol/L (3.6-5.0); SODIUM 137.3 mmol/L (137-145); TOTAL PROTEIN 5.5 g/dL (6.3-8.2)
[2018-09-30 07:49] LABS: PLATELET COUNT 74 10^3/uL (150-450)
[2018-09-30 07:51] LABS: ABSOLUTE LYMPHOCYTES# (MANUAL) 1.1 10^3/uL (0.5-4.7); ABSOLUTE MONOCYTES # (MANUAL) 1.1 10^3/uL (0.1-1.4); BAND NEUTROPHILS % (MANUAL) 1 % (3-5); BASOPHILS % (MANUAL) 2 % (0-2); LYMPHOCYTES % (MANUAL) 14 % (13-45); METAMYELOCYTES % (MANUAL) 1 % (0); MONOCYTES % (MANUAL) 15 % (3-13); SEGMENTED NEUTROPHILS % (MAN) 38 % (42-78); TOTAL CELLS COUNTED 100
[2018-09-30 07:54] LABS: ANISOCYTOSIS 2+; EOSINOPHILS % (MANUAL) 29 % (0-6); OVALOCYTES SLIGHT; POIKILOCYTOSIS SLIGHT; TOXIC GRANULATION 2+; TOXIC VACUOLATION PRESENT
[2018-09-30 07:55] LABS: PLATELET COMMENT DECREASED
--- NOTE | 2018-09-30 08:10 | PDOC PROGRESS REPORT ---
Subjective Progress Note for:: 09/30/18 Subjective:: Patient feeling much better today. Has not needed BiPAP. No new complaints. No further bleeding per rectum. Maldonado still bothers him. Reason For Visit: SEVERE SEPSIS,PYELONEPHRITIS,LOWER GI BLEED,ANEMIA Physical Exam Vital Signs: Temp Pulse Resp BP Pulse Ox 98.0 F 62 16 131/58 H 97 09/30/18 05:00 09/30/18 05:00 09/30/18 05:00 09/30/18 05:00 09/30/18 05:00 Intake & Output 09/29/18 09/30/18 10/01/18 06:59 06:59 06:59 Intake Total 725 2548 Output Total 2300 2245 Balance -1575 303 Weight 73.4 kg 71.7 kg General appearance: PRESENT: well-developed, well-nourished Head exam: PRESENT: normocephalic Respiratory exam: PRESENT: clear to auscultation luz, unlabored Cardiovascular exam: PRESENT: RRR Extremities exam: ABSENT: pedal edema Neurological exam: PRESENT: alert, awake, oriented to person, oriented to place, oriented to time, oriented to situation Psychiatric exam: PRESENT: appropriate affect Skin exam: PRESENT: normal color Results Laboratory Results: 09/30/18 06:10 09/30/18 06:10 09/29/18 09/29/18 09/30/18 08:00 08:00 06:10 WBC 8.2 7.6 RBC 2.88 L 2.77 L Hgb 10.4 L 10.0 L Hct 30.0 L 28.9 L MCV 104 H 104 H MCH 36.3 H 36.3 H MCHC 34.8 34.8 RDW 20.8 H 20.1 H Plt Count 71 L 74 L Seg Neutrophils % Not Reportable Not Reportable Lymphocytes % Not Reportable Not Reportable Monocytes % Not Reportable Not Reportable Eosinophils % Not Reportable Not Reportable Basophils % Not Reportable Not Reportable Absolute Neutrophils Not Reportable Not Reportable Absolute Lymphocytes Not Reportable Not Reportable Absolute Monocytes Not Reportable Not Reportable Absolute Eosinophils Not Reportable Not Reportable Absolute Basophils Not Reportable Not Reportable Sodium 137.8 Potassium 4.0 Chloride 105 Carbon Dioxide 27 Anion Gap 6 BUN 18 Creatinine 1.15 Est GFR ( Amer) > 60 Est GFR (Non-Af Amer) > 60 Glucose 98 Calcium 8.8 Magnesium 2.0 Total Bilirubin AST ALT Alkaline Phosphatase Total Protein Albumin 09/30/18 06:10 WBC RBC Hgb Hct MCV MCH MCHC RDW Plt Count Seg Neutrophils % Lymphocytes % Monocytes % Eosinophils % Basophils % Absolute Neutrophils Absolute Lymphocytes Absolute Monocytes Absolute Eosinophils Absolute Basophils Sodium 137.3 Potassium 3.7 Chloride 103 Carbon Dioxide 29 Anion Gap 5 BUN 18 Creatinine 1.01 Est GFR ( Amer) > 60 Est GFR (Non-Af Amer) > 60 Glucose 112 H Calcium 8.2 L Magnesium 1.9 Total Bilirubin 0.5 AST 57 ALT 54 Alkaline Phosphatase 102 Total Protein 5.5 L Albumin 2.7 L 09/25/18 21:21 Blood Blood Culture - Final Mrsa (Meth Resis Staph Aureus) Klebsiella Pneumoniae 09/25/18 19:42 Troponin I < 0.012 Impressions: Chest X-Ray 09/25/18 00:00 IMPRESSION: Right IJ central line in good position. No pneumothorax. Abdomen/Pelvis CT 09/25/18 20:50 IMPRESSION: 1. Mild inflammatory changes surrounding the left kidney which may represent sequela of recently passed urinary stone. 2. Query mild inflammatory changes surrounding the urinary bladder; correlate with urinalysis to exclude UTI. 3. Maldonado catheter in the prostatic urethra; recommend advancement into the urinary bladder. 4. Diverticulosis without inflammatory changes. Assessment & Plan - Diagnosis (1) Rectal bleeding Is this a current diagnosis for this admission?: Yes Plan: Now resolved. HIs HGB is currently stable. He is due for his next procrit injection this Saturday. I will try to arrange if he is still in house. (2) Anemia Qualifiers: Anemia type: due to chronic kidney disease Chronic kidney disease stage: stage 3 (moderate) Qualified Code(s): N18.3 - Chronic kidney disease, stage 3 (moderate); D63.1 - Anemia in chronic kidney disease Is this a current diagnosis for this admission?: No Plan: Procrit due this Saturday. (3) Thrombocytopenia Is this a current diagnosis for this admission?: No Plan: Currently stable and mild. Will continue to monitor. (4) Sepsis Qualifiers: Sepsis type: sepsis due to unspecified organism Qualified Code(s): A41.9 - Sepsis, unspecified organism Is this a current diagnosis for this admission?: Yes Plan: Agree with plans for 14 days Vanc. Hopefully, this can be arranged at home. (5) Acute renal failure Is this a current diagnosis for this admission?: Yes - Plan Summary Plan Summary: Will follow from a distance. Please call me with any questions or concerns. His blood counts are at baseline, except mild decrease in PLT from baseline, most likely due to the sepsis. This should continue to improve.
[2018-09-30] MEDS: MEROPENEM 1 GM in NORMAL SALINE 50 ML IV SCH (09:19)
[2018-09-30] MEDS: VITAMIN E (DL, ACETATE) 400 UNIT CAPSULE PO SCH (09:19)
[2018-09-30] MEDS: LACTOBACILLUS ACIDOPHILUS 250 MG TAB PO SCH ×2 (09:19→17:06)
[2018-09-30] MEDS: TAMSULOSIN HCL 0.4 MG CAP.SR.24H PO SCH ×2 (09:19→17:06)
[2018-09-30] MEDS: FAMOTIDINE 20 MG TABLET PO SCH ×2 (09:20→17:06)
[2018-09-30] MEDS: DUTASTERIDE 0.5 MG CAPSULE PO SCH (09:20)
[2018-09-30] MEDS: SERTRALINE HCL 50 MG TABLET PO SCH (09:20)
[2018-09-30] MEDS: METOPROLOL TARTRATE 50 MG TABLET PO SCH ×2 (09:26→22:24)
[2018-09-30 09:32] LABS: PATH REVIEW PATHOLOGIST REVIEWED
[2018-09-30] MEDS: PYRIDOXINE HCL 50 MG TABLET PO SCH (09:36)
[2018-09-30] MEDS: CLONAZEPAM 1 MG TABLET PO PRN (09:47)
--- NOTE | 2018-09-30 12:32 | PDOC PROGRESS REPORT ---
Subjective Progress Note for:: 09/30/18 Subjective:: 09/29/2018 this 83-year-old male admitted for severe sepsis and pyelonephritis. Repeat blood cultures came back positive for MRSA. Comfortable in the bed communicating very well. No acute events in the last 24 hours. T-max is 97.3. Recent is presently on meropenem and vancomycin. 09/30/2018-patient is comfortably sleeping in the bed patient expressed desire to the nurse that his code status needs to be changed to DNR/DNI. I spoke to the son who is at bedside he says dad and wants no intubation but wants resuscitation so he is going to be DNI from today. Reason For Visit: SEVERE SEPSIS,PYELONEPHRITIS,LOWER GI BLEED,ANEMIA Physical Exam Vital Signs: Temp Pulse Resp BP Pulse Ox 97.9 F 83 17 119/58 L 96 09/30/18 08:30 09/30/18 08:30 09/30/18 08:30 09/30/18 08:30 09/30/18 08:30 Intake & Output 09/29/18 09/30/18 10/01/18 06:59 06:59 06:59 Intake Total 725 2598 50 Output Total 2300 2245 Balance -1575 353 50 Weight 73.4 kg 71.7 kg General appearance: PRESENT: no acute distress Head exam: PRESENT: atraumatic Eye exam: PRESENT: PERRLA Mouth exam: PRESENT: dry mucosa Neck exam: ABSENT: carotid bruit, JVD, lymphadenopathy, thyromegaly Respiratory exam: PRESENT: clear to auscultation luz. ABSENT: rales, rhonchi, wheezes Pulses: PRESENT: normal dorsalis pedis pul GI/Abdominal exam: PRESENT: normal bowel sounds, soft. ABSENT: distended, guarding, mass, organolmegaly, rebound, tenderness Extremities exam: PRESENT: full ROM. ABSENT: calf tenderness, clubbing, pedal edema Neurological exam: PRESENT: alert, awake, oriented to person, oriented to place, oriented to time, oriented to situation, CN II-XII grossly intact. ABSENT: motor sensory deficit Psychiatric exam: PRESENT: appropriate affect, normal mood. ABSENT: homicidal ideation, suicidal ideation Results Laboratory Results: 09/30/18 06:10 09/30/18 06:10 09/30/18 09/30/18 06:10 06:10 WBC 7.6 RBC 2.77 L Hgb 10.0 L Hct 28.9 L MCV 104 H MCH 36.3 H MCHC 34.8 RDW 20.1 H Plt Count 74 L Seg Neutrophils % Not Reportable Lymphocytes % Not Reportable Monocytes % Not Reportable Eosinophils % Not Reportable Basophils % Not Reportable Absolute Neutrophils Not Reportable Absolute Lymphocytes Not Reportable Absolute Monocytes Not Reportable Absolute Eosinophils Not Reportable Absolute Basophils Not Reportable Sodium 137.3 Potassium 3.7 Chloride 103 Carbon Dioxide 29 Anion Gap 5 BUN 18 Creatinine 1.01 Est GFR ( Amer) > 60 Est GFR (Non-Af Amer) > 60 Glucose 112 H Calcium 8.2 L Magnesium 1.9 Total Bilirubin 0.5 AST 57 ALT 54 Alkaline Phosphatase 102 Total Protein 5.5 L Albumin 2.7 L 09/25/18 21:25 Maldonado Catheter Urine Culture - Final Klebsiella Pneumoniae Mrsa (Meth Resis Staph Aureus) 09/25/18 21:21 Blood Blood Culture - Final Mrsa (Meth Resis Staph Aureus) Klebsiella Pneumoniae 09/25/18 19:42 Troponin I < 0.012 Impressions: Chest X-Ray 09/25/18 00:00 IMPRESSION: Right IJ central line in good position. No pneumothorax. Abdomen/Pelvis CT 09/25/18 20:50 IMPRESSION: 1. Mild inflammatory changes surrounding the left kidney which may represent sequela of recently passed urinary stone. 2. Query mild inflammatory changes surrounding the urinary bladder; correlate with urinalysis to exclude UTI. 3. Maldonado catheter in the prostatic urethra; recommend advancement into the urinary bladder. 4. Diverticulosis without inflammatory changes. Assessment & Plan - Diagnosis (1) Bacteremia Is this a current diagnosis for this admission?: Yes Plan: Patient has 2 out of 2 blood cultures positive for MRSA and Klebsiella pneumonia. Is presently on IV meropenem and vancomycin. Blood cultures x2 are repeated. Consult was placed for Dr. Barkley, infectious disease. Patient's urine cultures positive for gram-negative rods. Continues to have some mild left flank pain. CT the abdomen pelvis showed possible pial left kidney. 09/29/2018-second set of blood cultures came back positive for MRSA. Patient is on meropenem and vancomycin. Urine cultures showing gram-negative rods and gram-positive cocci. ID consult was placed as per the previous notes. The meantime plan is to continue the present antibiotic therapy. 09/30/2018-blood cultures positive for MRSA bacteremia. Patient is presently on meropenem and IV vancomycin as per ID recommendations meropenem was discontinued started on Rocephin 2 g IV daily. Urine culture is also showing Klebsiella and MRSA. Patient is afebrile T-max is 97.9 WBC count is 7600. Plan is to recheck the labs tomorrow. (2) Pyelonephritis Is this a current diagnosis for this admission?: Yes Plan: 09/29/2018-patient denies any left CVA tenderness. Urine looks clear. Plan is to continue meropenem and IV vancomycin. Vanco trough is 11.4. 09/30/2018-patient has indwelling Maldonado's catheter urine looks clean. Presently on IV vancomycin and IV meropenem meropenem was discontinued and started on Rocephin 2 g IV as per ID recommendations. (3) Leukocytosis Is this a current diagnosis for this admission?: Yes Plan: 09/29/2018-W BC count today is 8200. Significant improvement from the previous labs. On 09/27/2018 WBC is 39,000. Leukocytosis most likely secondary to sepsis is resolving. 09/30/2018-WBC count today 7600. Leukocytosis is resolved. (4) Anemia Qualifiers: Anemia type: due to chronic kidney disease Chronic kidney disease stage: stage 3 (moderate) Qualified Code(s): N18.3 - Chronic kidney disease, stage 3 (moderate); D63.1 - Anemia in chronic kidney disease Is this a current diagnosis for this admission?: No Plan: 09/29/2018-patient is given the history of chronic anemia he follows with Dr. Gemma zacarias as an outpatient. His hemoglobin is 10.4 today stable. Patient is complaining of slight blood from the ureteral meatus after catheter was replaced in the ER. 09/30/2018 patient has history of anemia of chronic disease. Is following with Dr. López. He is going to receive Procrit on Saturday at her office. Rectal bleed is resolved. Hemoglobin is 10. Acute blood loss anemia may be secondary to rectal bleed. (5) Septic shock Is this a current diagnosis for this admission?: Yes Plan: 09/29/2018-patient was admitted with septic shock blood cultures are positive for MRSA. Urine culture is positive for gram-negative rods and gram-positive cocci. On meropenem and IV vancomycin. Sepsis is resolving. During the initial days of admission he was tachycardic hypotensive requiring vasopressors. 09/30/2018-patient blood pressure today is 119/60 urine culture and blood culture showing Klebsiella and MRSA. Plan is to continue the antibiotic therapy. Septic shock is resolving. 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 He follows with Dr. López. As per food production machine operator thrombocytopenia most likely secondary to consumption. 09/30/2018-patient platelet count is 74,000 he has chronic thrombocytopenia. He is not on any DVT prophylaxis because of the low platelet count. 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 - Time Time Spent with patient: 15-24 minutes Medications reviewed and adjusted accordingly: Yes Anticipated discharge: Home
[2018-09-30] MEDS: VANCOMYCIN HCL 1,500 MG in DEXTROSE 5%-WATER 250 ML IV SCH (18:23)
[2018-09-30] MEDS: ATORVASTATIN CALCIUM 40 MG TABLET PO SCH (22:24)
[2018-10-01] MEDS: ACETAMINOPHEN 325 MG TABLET PO PRN (03:01)
[2018-10-01] MEDS: CLOTRIMAZOLE 1% CREAM 15 GM TP SCH ×3 (05:10→21:48)
[2018-10-01 05:52] LABS: ABSOLUTE BASOPHILS # (AUTO) 0.1 10^3/uL (0.0-0.2); ABSOLUTE EOSINOPHILS # (AUTO) 1.5 10^3/uL (0.0-0.6); ABSOLUTE LYMPHOCYTES (AUTO) 1.1 10^3/uL (0.5-4.7); ABSOLUTE MONOCYTES (AUTO) 1.3 10^3/uL (0.1-1.4); ABSOLUTE NEUT (AUTO) 3.5 10^3/uL (1.7-8.2); BASOPHILS % (AUTO) 1.5 % (0-2); EOSINOPHILS % (AUTO) 20.8 % (0-6); HEMATOCRIT 27.7 % (37.9-51.0); HEMOGLOBIN 9.7 g/dL (13.5-17.0); LYMPHOCYTES % (AUTO) 14.3 % (13-45); MEAN CORPUSCULAR HEMOGLOBIN 36.2 pg (27.0-33.4); MEAN CORPUSCULAR HGB CONC 34.9 g/dL (32.0-36.0); MEAN CORPUSCULAR VOLUME 104 fl (80-97); MONOCYTES % (AUTO) 16.9 % (3-13); RED BLOOD COUNT 2.67 10^6/uL (4.35-5.55); SEGMENTED NEUTROPHILS % (AUTO) 46.5 % (42-78); TOTAL CELLS COUNTED % (AUTO) 100 %; WHITE BLOOD COUNT 7.4 10^3/uL (4.0-10.5)
[2018-10-01 06:21] LABS: ALANINE AMINOTRANSFERASE 47 U/L (21-72); ALBUMIN 2.6 g/dL (3.5-5.0); ALKALINE PHOSPHATASE 84 U/L (38-126); ASPARTATE AMINO TRANSFERASE 50 U/L (17-59); BILIRUBIN,DIRECT 0.2 mg/dL (0.0-0.4); BILIRUBIN,TOTAL 0.4 mg/dL (0.2-1.3); BLOOD UREA NITROGEN 17 mg/dL (7-20); CALCIUM 8.4 mg/dL (8.4-10.2); GLUCOSE 98 mg/dL (75-110); TOTAL PROTEIN 5.4 g/dL (6.3-8.2)
[2018-10-01 06:28] LABS: CARBON DIOXIDE 30 mmol/L (22-30); CHLORIDE 106 mmol/L (98-107); SODIUM 139.6 mmol/L (137-145)
[2018-10-01 06:32] LABS: ANION GAP 4 (5-19)
[2018-10-01 07:20] LABS: PLATELET COUNT 78 10^3/uL (150-450)
[2018-10-01] MEDS: CALCITRIOL 0.25 MCG CAPSULE PO SCH (08:13)
--- NOTE | 2018-10-01 08:17 | PDOC PROGRESS REPORT ---
Subjective Progress Note for:: 10/01/18 Subjective:: Patient states he is ready to go home. He feels very weak because he is not allowed to get out of bed and walk. Reason For Visit: SEVERE SEPSIS,PYELONEPHRITIS,LOWER GI BLEED,ANEMIA Physical Exam Vital Signs: Temp Pulse Resp BP Pulse Ox 98.1 F 67 17 124/58 L 97 10/01/18 04:00 10/01/18 04:00 10/01/18 04:00 10/01/18 04:00 10/01/18 04:00 Intake & Output 09/30/18 10/01/18 10/02/18 06:59 06:59 06:59 Intake Total 2848 1208 Output Total 2245 1300 Balance 603 -92 Weight 71.7 kg 73.1 kg General appearance: PRESENT: thin Head exam: PRESENT: normocephalic Respiratory exam: PRESENT: clear to auscultation luz, unlabored Cardiovascular exam: PRESENT: other - Heart sound obscured GI/Abdominal exam: PRESENT: soft. ABSENT: tenderness Extremities exam: ABSENT: pedal edema Neurological exam: PRESENT: alert, awake Psychiatric exam: PRESENT: appropriate affect Skin exam: PRESENT: normal color Results Laboratory Results: 10/01/18 05:04 10/01/18 05:04 10/01/18 10/01/18 05:04 05:04 WBC 7.4 RBC 2.67 L Hgb 9.7 L Hct 27.7 L MCV 104 H MCH 36.2 H MCHC 34.9 RDW 20.0 H Plt Count 78 L Seg Neutrophils % 46.5 Lymphocytes % 14.3 Monocytes % 16.9 H Eosinophils % 20.8 H Basophils % 1.5 Absolute Neutrophils 3.5 Absolute Lymphocytes 1.1 Absolute Monocytes 1.3 Absolute Eosinophils 1.5 H Absolute Basophils 0.1 Sodium 139.6 Potassium 4.0 Chloride 106 Carbon Dioxide 30 Anion Gap 4 L BUN 17 Creatinine 0.95 Est GFR ( Amer) > 60 Est GFR (Non-Af Amer) > 60 Glucose 98 Calcium 8.4 Magnesium 2.1 Total Bilirubin 0.4 AST 50 ALT 47 Alkaline Phosphatase 84 Total Protein 5.4 L Albumin 2.6 L 09/25/18 21:25 Maldonado Catheter Urine Culture - Final Klebsiella Pneumoniae Mrsa (Meth Resis Staph Aureus) 09/25/18 19:42 Troponin I < 0.012 Impressions: Chest X-Ray 09/25/18 00:00 IMPRESSION: Right IJ central line in good position. No pneumothorax. Abdomen/Pelvis CT 09/25/18 20:50 IMPRESSION: 1. Mild inflammatory changes surrounding the left kidney which may represent sequela of recently passed urinary stone. 2. Query mild inflammatory changes surrounding the urinary bladder; correlate with urinalysis to exclude UTI. 3. Maldonado catheter in the prostatic urethra; recommend advancement into the urinary bladder. 4. Diverticulosis without inflammatory changes. Assessment & Plan - Diagnosis (1) Rectal bleeding Is this a current diagnosis for this admission?: Yes (2) Anemia Qualifiers: Anemia type: due to chronic kidney disease Chronic kidney disease stage: stage 3 (moderate) Qualified Code(s): N18.3 - Chronic kidney disease, stage 3 (moderate); D63.1 - Anemia in chronic kidney disease Is this a current diagnosis for this admission?: No (3) Thrombocytopenia Is this a current diagnosis for this admission?: No (4) Sepsis Qualifiers: Sepsis type: sepsis due to unspecified organism Qualified Code(s): A41.9 - Sepsis, unspecified organism Is this a current diagnosis for this admission?: Yes (5) Acute renal failure Is this a current diagnosis for this admission?: Yes - Plan Summary Plan Summary: Patient appears to be back to baseline. I will arrange for his regular dose of procrit here or in my office, if he is discharged. I am hopeful that home health can be arranged to continue his IV ABX at home. Please call me if needed further.
[2018-10-01] MEDS ORDERED: EPOETIN ALFA INJ 40000 UNIT/1 ML (RENAL) IV ONE (09:30)
[2018-10-01] MEDS: METOPROLOL TARTRATE 50 MG TABLET PO SCH ×2 (09:33→21:25)
[2018-10-01] MEDS: TAMSULOSIN HCL 0.4 MG CAP.SR.24H PO SCH ×2 (09:33→17:49)
[2018-10-01] MEDS: PYRIDOXINE HCL 50 MG TABLET PO SCH (09:33)
[2018-10-01] MEDS: CLONAZEPAM 1 MG TABLET PO PRN ×2 (09:33→21:25)
[2018-10-01] MEDS: DUTASTERIDE 0.5 MG CAPSULE PO SCH (09:33)
[2018-10-01] MEDS: SERTRALINE HCL 50 MG TABLET PO SCH (09:33)
[2018-10-01] MEDS: VITAMIN E (DL, ACETATE) 400 UNIT CAPSULE PO SCH (09:33)
[2018-10-01] MEDS: LACTOBACILLUS ACIDOPHILUS 250 MG TAB PO SCH ×2 (09:33→17:49)
[2018-10-01] MEDS: FAMOTIDINE 20 MG TABLET PO SCH ×2 (09:33→17:49)
[2018-10-01] MEDS: CEFTRIAXONE 2 GM/D5W RTU 2 GM/50 ML RTUPB IV SCH (09:34)
--- NOTE | 2018-10-01 15:02 | PDOC PROGRESS REPORT ---
Subjective Progress Note for:: 10/01/18 Subjective:: 09/29/2018 this 83-year-old male admitted for severe sepsis and pyelonephritis. Repeat blood cultures came back positive for MRSA. Comfortable in the bed communicating very well. No acute events in the last 24 hours. T-max is 97.3. Recent is presently on meropenem and vancomycin. 09/30/2018-patient is comfortably sleeping in the bed patient expressed desire to the nurse that his code status needs to be changed to DNR/DNI. I spoke to the son who is at bedside he says dad and wants no intubation but wants resuscitation so he is going to be DNI from today. 10/01/2018-patient is an good mood today communicating very well denies any problems at all. He is expressing desire to go home. He is also asking about IV antibiotic therapy at home as discussed by Dr. López. I do agree with the patient that he needs to go home on IV antibiotic therapy and he need a PICC line we going to make arrangements for the antibiotic therapy as an outpatient he needs to be on antibiotics for 2 weeks from the day of negative cultures the latest cultures from 09/28 is negative so he need at least 10 days of IV antibiotic therapy. Reason For Visit: SEVERE SEPSIS,PYELONEPHRITIS,LOWER GI BLEED,ANEMIA Physical Exam Vital Signs: Temp Pulse Resp BP Pulse Ox 97.7 F 63 16 132/61 H 94 10/01/18 11:29 10/01/18 14:00 10/01/18 12:25 10/01/18 11:29 10/01/18 12:25 Intake & Output 09/30/18 10/01/18 10/02/18 06:59 06:59 06:59 Intake Total 2848 1208 50 Output Total 2245 1300 Balance 603 -92 50 Weight 71.7 kg 73.1 kg General appearance: PRESENT: no acute distress Head exam: PRESENT: atraumatic Eye exam: PRESENT: PERRLA Mouth exam: PRESENT: dry mucosa Neck exam: ABSENT: carotid bruit, JVD, lymphadenopathy, thyromegaly Respiratory exam: PRESENT: clear to auscultation luz. ABSENT: rales, rhonchi, wheezes Cardiovascular exam: PRESENT: RRR. ABSENT: diastolic murmur, rubs, systolic murmur GI/Abdominal exam: PRESENT: normal bowel sounds, soft. ABSENT: distended, guarding, mass, organolmegaly, rebound, tenderness Extremities exam: PRESENT: full ROM. ABSENT: calf tenderness, clubbing, pedal edema Neurological exam: PRESENT: alert, awake, oriented to person, oriented to place, oriented to time, oriented to situation, CN II-XII grossly intact. ABSENT: motor sensory deficit Psychiatric exam: PRESENT: appropriate affect, normal mood. ABSENT: homicidal ideation, suicidal ideation Results Laboratory Results: 10/01/18 05:04 10/01/18 05:04 10/01/18 10/01/18 05:04 05:04 WBC 7.4 RBC 2.67 L Hgb 9.7 L Hct 27.7 L MCV 104 H MCH 36.2 H MCHC 34.9 RDW 20.0 H Plt Count 78 L Seg Neutrophils % 46.5 Lymphocytes % 14.3 Monocytes % 16.9 H Eosinophils % 20.8 H Basophils % 1.5 Absolute Neutrophils 3.5 Absolute Lymphocytes 1.1 Absolute Monocytes 1.3 Absolute Eosinophils 1.5 H Absolute Basophils 0.1 Sodium 139.6 Potassium 4.0 Chloride 106 Carbon Dioxide 30 Anion Gap 4 L BUN 17 Creatinine 0.95 Est GFR ( Amer) > 60 Est GFR (Non-Af Amer) > 60 Glucose 98 Calcium 8.4 Magnesium 2.1 Total Bilirubin 0.4 AST 50 ALT 47 Alkaline Phosphatase 84 Total Protein 5.4 L Albumin 2.6 L 09/25/18 19:42 Troponin I < 0.012 Impressions: Chest X-Ray 09/25/18 00:00 IMPRESSION: Right IJ central line in good position. No pneumothorax. Abdomen/Pelvis CT 09/25/18 20:50 IMPRESSION: 1. Mild inflammatory changes surrounding the left kidney which may represent sequela of recently passed urinary stone. 2. Query mild inflammatory changes surrounding the urinary bladder; correlate with urinalysis to exclude UTI. 3. Maldonado catheter in the prostatic urethra; recommend advancement into the urinary bladder. 4. Diverticulosis without inflammatory changes. Assessment & Plan - Diagnosis (1) Bacteremia Is this a current diagnosis for this admission?: Yes Plan: Patient has 2 out of 2 blood cultures positive for MRSA and Klebsiella pneumonia. Is presently on IV meropenem and vancomycin. Blood cultures x2 are repeated. Consult was placed for Dr. Barkley, infectious disease. Patient's urine cultures positive for gram-negative rods. Continues to have some mild left flank pain. CT the abdomen pelvis showed possible pial left kidney. 09/29/2018-second set of blood cultures came back positive for MRSA. Patient is on meropenem and vancomycin. Urine cultures showing gram-negative rods and gram-positive cocci. ID consult was placed as per the previous notes. The meantime plan is to continue the present antibiotic therapy. 09/30/2018-blood cultures positive for MRSA bacteremia. Patient is presently on meropenem and IV vancomycin as per ID recommendations meropenem was discontinued started on Rocephin 2 g IV daily. Urine culture is also showing Klebsiella and MRSA. Patient is afebrile T-max is 97.9 WBC count is 7600. Plan is to recheck the labs tomorrow. 10/01/2018-blood cultures are positive for MRSA bacteremia presently is on ceftriaxone 2 g IV daily and vancomycin as per ID recommendations plan is to discontinue IV vancomycin today I am going to arrange for PICC line probably tomorrow and patient is going to go home on IV Rocephin 2 g daily for 10 days. Patient is afebrile temperature is 97.7 WBC count is 7400. (2) Pyelonephritis Is this a current diagnosis for this admission?: Yes Plan: 09/29/2018-patient denies any left CVA tenderness. Urine looks clear. Plan is to continue meropenem and IV vancomycin. Vanco trough is 11.4. 09/30/2018-patient has indwelling Maldonado's catheter urine looks clean. Presently on IV vancomycin and IV meropenem meropenem was discontinued and started on R ocephin 2 g IV as per ID recommendations. 10/01/2018-patient has indwelling catheter, urine culture is positive for MRSA and Klebsiella pneumonia plan is to continue IV antibiotic therapy discharge the patient home with PICC line to get IV Rocephin 2 g daily for 10 days. (3) Leukocytosis Is this a current diagnosis for this admission?: Yes Plan: 09/29/2018-W BC count today is 8200. Significant improvement from the previous labs. On 09/27/2018 WBC is 39,000. Leukocytosis most likely secondary to sepsis is resolving. 09/30/2018-WBC count today 7600. Leukocytosis is resolved. 10/01/2018 WBC count is 7400 leukocytosis is resolved. (4) Anemia Qualifiers: Anemia type: due to chronic kidney disease Chronic kidney disease stage: stage 3 (moderate) Qualified Code(s): N18.3 - Chronic kidney disease, stage 3 (moderate); D63.1 - Anemia in chronic kidney disease Is this a current diagnosis for this admission?: No Plan: 09/29/2018-patient is given the history of chronic anemia he follows with Dr. López as an outpatient. His hemoglobin is 10.4 today stable. Patient is complaining of slight blood from the ureteral meatus after catheter was replaced in the ER. 09/30/2018 patient has history of anemia of chronic disease. Is following with Dr. López. He is going to receive Procrit on Saturday at her office. Rectal bleed is resolved. Hemoglobin is 10. Acute blood loss anemia may be secondary to rectal bleed. 10/01/2018-patient has history of anemia of chronic disease he received Procrit injection today and is going to follow-up with Dr. López as outpatient for the continuation of the Procrit therapy. (5) Septic shock Is this a current diagnosis for this admission?: Yes Plan: 09/29/2018-patient was admitted with septic shock blood cultures are positive for MRSA. Urine culture is positive for gram-negative rods and gram-positive cocci. On meropenem and IV vancomycin. Sepsis is resolving. During the initial days of admission he was tachycardic hypotensive requiring vasopressors. 09/30/2018-patient blood pressure today is 119/60 urine culture and blood culture showing Klebsiella and MRSA. Plan is to continue the antibiotic therapy. Septic shock is resolving. 10/01/2018-patient blood pressure today is 132/61, urine cultures blood cultures are positive for Klebsiella and MRSA on IV Rocephin 2 g daily patient is afebrile blood pressures are stable septic shock is resolved. 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 He follows with Dr. López. As per esl teacher thrombocytopenia most likely secondary to consumption. 09/30/2018-patient platelet count is 74,000 he has chronic thrombocytopenia. He is not on any DVT prophylaxis because of the low platelet count. 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 10/01/2018 patient's platelet count is 78,000 history of chronic low platelet count it may be most likely secondary to dysplastic anemia. - Time Time Spent with patient: 15-24 minutes Medications reviewed and adjusted accordingly: Yes Anticipated discharge: Home with Homehealth
[2018-10-01 18:08] LABS: HEMATOCRIT 29.3 % (37.9-51.0); HEMOGLOBIN 10.1 g/dL (13.5-17.0); MEAN CORPUSCULAR HEMOGLOBIN 36.1 pg (27.0-33.4); MEAN CORPUSCULAR HGB CONC 34.5 g/dL (32.0-36.0); MEAN CORPUSCULAR VOLUME 105 fl (80-97); RED BLOOD COUNT 2.79 10^6/uL (4.35-5.55); RED CELL DISTRIBUTION WIDTH 19.7 % (11.5-14.0); WHITE BLOOD COUNT 7.1 10^3/uL (4.0-10.5)
[2018-10-01 18:17] LABS: PROTHROMBIN TIME 13.7 SEC (11.4-15.4)
[2018-10-01 18:34] LABS: PLATELET COUNT 82 10^3/uL (150-450)
[2018-10-01 18:40] LABS: ABSOLUTE LYMPHOCYTES# (MANUAL) 2.3 10^3/uL (0.5-4.7); ABSOLUTE MONOCYTES # (MANUAL) 0.5 10^3/uL (0.1-1.4); ABSOLUTE NEUTROPHILS# (MANUAL) 2.8 10^3/uL (1.7-8.2); BASOPHILS % (MANUAL) 0 % (0-2); EOSINOPHILS % (MANUAL) 21 % (0-6); LYMPHOCYTES % (MANUAL) 30 % (13-45); MONOCYTES % (MANUAL) 7 % (3-13); SEGMENTED NEUTROPHILS % (MAN) 40 % (42-78); TOTAL CELLS COUNTED 100
[2018-10-01 18:41] LABS: ANISOCYTOSIS 2+; PLATELET COMMENT DECREASED
[2018-10-01] MEDS: ATORVASTATIN CALCIUM 40 MG TABLET PO SCH (21:26)
[2018-10-02 07:00] LABS: ALANINE AMINOTRANSFERASE 64 U/L (21-72); ALBUMIN 2.8 g/dL (3.5-5.0); ALKALINE PHOSPHATASE 92 U/L (38-126); ASPARTATE AMINO TRANSFERASE 59 U/L (17-59); BILIRUBIN,DIRECT 0.1 mg/dL (0.0-0.4); BILIRUBIN,TOTAL 0.6 mg/dL (0.2-1.3); BLOOD UREA NITROGEN 19 mg/dL (7-20); CALCIUM 8.6 mg/dL (8.4-10.2); CARBON DIOXIDE 32 mmol/L (22-30); CHLORIDE 103 mmol/L (98-107); GLUCOSE 96 mg/dL (75-110); POTASSIUM 4.4 mmol/L (3.6-5.0); TOTAL PROTEIN 5.7 g/dL (6.3-8.2)
[2018-10-02 07:01] LABS: HEMATOCRIT 27.6 % (37.9-51.0); HEMOGLOBIN 9.6 g/dL (13.5-17.0); MEAN CORPUSCULAR HEMOGLOBIN 36.2 pg (27.0-33.4); MEAN CORPUSCULAR HGB CONC 34.8 g/dL (32.0-36.0); MEAN CORPUSCULAR VOLUME 104 fl (80-97); RED BLOOD COUNT 2.66 10^6/uL (4.35-5.55); RED CELL DISTRIBUTION WIDTH 19.2 % (11.5-14.0); WHITE BLOOD COUNT 10.1 10^3/uL (4.0-10.5)
[2018-10-02 07:06] LABS: SODIUM 138.1 mmol/L (137-145)
[2018-10-02 07:21] LABS: ANION GAP 3 (5-19)
[2018-10-02 07:44] LABS: PLATELET COUNT 91 10^3/uL (150-450)
[2018-10-02 07:53] LABS: ABSOLUTE LYMPHOCYTES# (MANUAL) 0.6 10^3/uL (0.5-4.7); ABSOLUTE MONOCYTES # (MANUAL) 0.1 10^3/uL (0.1-1.4); ABSOLUTE NEUTROPHILS# (MANUAL) 8.2 10^3/uL (1.7-8.2); BAND NEUTROPHILS % (MANUAL) 1 % (3-5); BASOPHILS % (MANUAL) 0 % (0-2); EOSINOPHILS % (MANUAL) 12 % (0-6); LYMPHOCYTES % (MANUAL) 6 % (13-45); MONOCYTES % (MANUAL) 1 % (3-13); SEGMENTED NEUTROPHILS % (MAN) 80 % (42-78); TOTAL CELLS COUNTED 100
[2018-10-02 07:55] LABS: TOXIC GRANULATION 1+
[2018-10-02 07:56] LABS: ANISOCYTOSIS 2+; OVALOCYTES SLIGHT; PLATELET COMMENT DECREASED; STOMATOCYTES SLIGHT
[2018-10-02] MEDS: CLOTRIMAZOLE 1% CREAM 15 GM TP SCH ×3 (08:46→23:40)
[2018-10-02] MEDS: LACTOBACILLUS ACIDOPHILUS 250 MG TAB PO SCH ×2 (09:39→17:13)
[2018-10-02] MEDS: CEFTRIAXONE 2 GM/D5W RTU 2 GM/50 ML RTUPB IV SCH (09:39)
[2018-10-02] MEDS: METOPROLOL TARTRATE 50 MG TABLET PO SCH ×2 (09:39→21:19)
[2018-10-02] MEDS: DUTASTERIDE 0.5 MG CAPSULE PO SCH (09:39)
[2018-10-02] MEDS: TAMSULOSIN HCL 0.4 MG CAP.SR.24H PO SCH ×2 (09:39→17:13)
[2018-10-02] MEDS: FAMOTIDINE 20 MG TABLET PO SCH ×2 (09:39→17:14)
[2018-10-02] MEDS: PYRIDOXINE HCL 50 MG TABLET PO SCH (09:40)
[2018-10-02] MEDS: VITAMIN E (DL, ACETATE) 400 UNIT CAPSULE PO SCH (09:40)
[2018-10-02] MEDS: SERTRALINE HCL 50 MG TABLET PO SCH (09:40)
[2018-10-02] MEDS: CLONAZEPAM 1 MG TABLET PO PRN ×2 (09:47→21:14)
[2018-10-02] MEDS: ACETAMINOPHEN 325 MG TABLET PO PRN (11:35)
[2018-10-02] MEDS ORDERED: NORMAL SALINE 10 ML SDV (AFTER EACH USE) IV PRN (12:00)
--- NOTE | 2018-10-02 13:14 | RADIOLOGY REPORT (SQ) ---
EXAM DESCRIPTION: PICC INSERTION; U/S GUIDE FOR VASCULAR ACCESS; FLUORO/CV PLACEMENT COMPLETED DATE/TIME: 10/02/2018 12:19 pm REASON FOR STUDY: out pt iv antibiotics; IV ABX COMPARISON: None. FLUOROSCOPY TIME: 28 seconds 2 images saved to PACS. TECHNIQUE: Fluoroscopic and ultrasound guided PICC placement. LIMITATIONS: None. PROCEDURE: After written consent and assessment were obtained, the patient was brought into the fluo roscopy room and placed supine on the table. Ultrasound evaluation of potential access sites were per formed. After successfully identifying a patent left basilic vein, the left arm was prepped and drape d in a sterile fashion along with the ultrasound probe. The entry site was anesthetized with 1% lidoc anders. A 21 gauge 7 cm needle was advanced through the skin and into the basilic vein under live ultra sound guidance. An ultrasound image was saved to PACS confirming access site. A .018 guide wire was then inserted through the needle and into the venous system. The needle was then removed and an 11 b lade scalpel was used to make a 1cm skin incision. A 5 fr peel-away sheath was advanced over the wir e and into the venous system. A measurement was then made using the existing wire and live fluoroscop ic guidance. The wire was then removed and trimmed. The PICC was advanced through the peel-away sheat h and into the venous system. The peel-away sheath was removed and the catheter was adhered to the pa tients arm with a stat lock. The catheter was then aspirated and flushed and a sterile bandage was pl aced over the access site. A fluoroscopic spot image was saved to PACS confirming the catheter tip w ithin the superior vena cava. IMPRESSION: SUCCESSFUL PLACEMENT OF A 5 FR DUAL LUMEN 38 CM PICC IN THE LEFT BASILIC VEIN. COMMENT: Patient medication list reviewed: Yes- Quality ID# [id number]:Eligible professional attests to doc umenting in the medical record they obtained, updated, or reviewed the patient's current medications. . Quality ID 145: Final reports for procedures using fluoroscopy that document radiation exposure lydia shahida, or exposure time and number of fluorographic images (if radiation exposure indices are not avail able) Quality ID #[id number]: The patient was prepped and draped using maximum sterile barrier technique including cap, mask, sterile gown, sterile gloves, a large sterile sheet, hand hygiene, and 2% Chlorhexidine fo r cutaneous antisepsis. When ultrasound is used, sterile ultrasound techniques are followed requiring sterile gel and sterile probes. TECHNICAL DOCUMENTATION: JOB ID: [id number] [employer]- All Rights Reserved rev-12/13 Reading location - IP/workstation name: ROB
--- NOTE | 2018-10-02 15:04 | PDOC PROGRESS REPORT ---
Subjective Progress Note for:: 10/02/18 Subjective:: 09/29/2018 this 83-year-old male admitted for severe sepsis and pyelonephritis. Repeat blood cultures came back positive for MRSA. Comfortable in the bed communicating very well. No acute events in the last 24 hours. T-max is 97.3. Recent is presently on meropenem and vancomycin. 09/30/2018-patient is comfortably sleeping in the bed patient expressed desire to the nurse that his code status needs to be changed to DNR/DNI. I spoke to the son who is at bedside he says dad and wants no intubation but wants resuscitation so he is going to be DNI from today. 10/01/2018-patient is an good mood today communicating very well denies any problems at all. He is expressing desire to go home. He is also asking about IV antibiotic therapy at home as discussed by Dr. López. I do agree with the patient that he needs to go home on IV antibiotic therapy and he need a PICC line we going to make arrangements for the antibiotic therapy as an outpatient he needs to be on antibiotics for 2 weeks from the day of negative cultures the latest cultures from 09/28 is negative so he need at least 10 days of IV antibiotic therapy. 10/02/2018-patient has a PICC line placement done today he can go home tomorrow with IV antibiotic therapy. No acute events in the last 24 hours except for few blood clots noticed from his pain is yesterday. Repeat hemoglobin is stable. Urine catheter shows slightly dark colored urine. Reason For Visit: SEVERE SEPSIS,PYELONEPHRITIS,LOWER GI BLEED,ANEMIA Physical Exam Vital Signs: Temp Pulse Resp BP Pulse Ox 98.1 F 89 16 132/64 H 94 10/02/18 11:35 10/02/18 14:00 10/02/18 11:35 10/02/18 11:35 10/02/18 11:35 Intake & Output 10/01/18 10/02/18 10/03/18 06:59 06:59 06:59 Intake Total 1208 1130 50 Output Total 1300 1600 Balance -92 -470 50 Weight 73.1 kg 73.1 kg General appearance: PRESENT: no acute distress Head exam: PRESENT: atraumatic Eye exam: PRESENT: PERRLA Mouth exam: PRESENT: dry mucosa Neck exam: ABSENT: carotid bruit, JVD, lymphadenopathy, thyromegaly Respiratory exam: PRESENT: clear to auscultation luz. ABSENT: rales, rhonchi, wheezes Cardiovascular exam: PRESENT: RRR. ABSENT: diastolic murmur, rubs, systolic murmur GI/Abdominal exam: PRESENT: normal bowel sounds, soft. ABSENT: distended, guarding, mass, organolmegaly, rebound, tenderness Extremities exam: PRESENT: full ROM. ABSENT: calf tenderness, clubbing, pedal edema Neurological exam: PRESENT: alert, awake, oriented to person, oriented to place, oriented to time, oriented to situation, CN II-XII grossly intact. ABSENT: motor sensory deficit Psychiatric exam: PRESENT: appropriate affect, normal mood. ABSENT: homicidal ideation, suicidal ideation Results Laboratory Results: 10/02/18 06:20 10/02/18 06:20 10/01/18 10/02/18 10/02/18 17:50 06:20 06:20 WBC 7.1 10.1 RBC 2.79 L 2.66 L Hgb 10.1 L 9.6 L Hct 29.3 L 27.6 L MCV 105 H 104 H MCH 36.1 H 36.2 H MCHC 34.5 34.8 RDW 19.7 H 19.2 H Plt Count 82 L 91 L Seg Neutrophils % Not Reportable Not Reportable Lymphocytes % Not Reportable Not Reportable Monocytes % Not Reportable Not Reportable Eosinophils % Not Reportable Not Reportable Basophils % Not Reportable Not Reportable Absolute Neutrophils Not Reportable Not Reportable Absolute Lymphocytes Not Reportable Not Reportable Absolute Monocytes Not Reportable Not Reportable Absolute Eosinophils Not Reportable Not Reportable Absolute Basophils Not Reportable Not Reportable Sodium 138.1 Potassium 4.4 Chloride 103 Carbon Dioxide 32 H Anion Gap 3 L BUN 19 Creatinine 1.05 Est GFR ( Amer) > 60 Est GFR (Non-Af Amer) > 60 Glucose 96 Calcium 8.6 Magnesium 1.9 Total Bilirubin 0.6 AST 59 ALT 64 Alkaline Phosphatase 92 Total Protein 5.7 L Albumin 2.8 L 09/25/18 19:42 Troponin I < 0.012 Impressions: Chest X-Ray 09/25/18 00:00 IMPRESSION: Right IJ central line in good position. No pneumothorax. Abdomen/Pelvis CT 09/25/18 20:50 IMPRESSION: 1. Mild inflammatory changes surrounding the left kidney which may represent sequela of recently passed urinary stone. 2. Query mild inflammatory changes surrounding the urinary bladder; correlate with urinalysis to exclude UTI. 3. Maldonado catheter in the prostatic urethra; recommend advancement into the urinary bladder. 4. Diverticulosis without inflammatory changes. Guidance Fluoroscopy 10/02/18 00:00 IMPRESSION: SUCCESSFUL PLACEMENT OF A 5 FR DUAL LUMEN 38 CM PICC IN THE LEFT BASILIC VEIN. Interventional Vascular Procedure 10/02/18 00:00 IMPRESSION: SUCCESSFUL PLACEMENT OF A 5 FR DUAL LUMEN 38 CM PICC IN THE LEFT BASILIC VEIN. PICC Line Insertion 10/02/18 00:00 IMPRESSION: SUCCESSFUL PLACEMENT OF A 5 FR DUAL LUMEN 38 CM PICC IN THE LEFT BASILIC VEIN. Assessment & Plan - Diagnosis (1) Bacteremia Is this a current diagnosis for this admission?: Yes Plan: Patient has 2 out of 2 blood cultures positive for MRSA and Klebsiella pneumonia. Is presently on IV meropenem and vancomycin. Blood cultures x2 are repeated. Consult was placed for Dr. Barkley, infectious disease. Patient's urine cultures positive for gram-negative rods. Continues to have some mild left flank pain. CT the abdomen pelvis showed possible pial left kidney. 09/29/2018-second set of blood cultures came back positive for MRSA. Patient is on meropenem and vancomycin. Urine cultures showing gram-negative rods and gram-positive cocci. ID consult was placed as per the previous notes. The meantime plan is to continue the present antibiotic therapy. 09/30/2018-blood cultures positive for MRSA bacteremia. Patient is presently on meropenem and IV vancomycin as per ID recommendations meropenem was discontinued started on Rocephin 2 g IV daily. Urine culture is also showing Klebsiella and MRSA. Patient is afebrile T-max is 97.9 WBC count is 7600. Plan is to recheck the labs tomorrow. 10/01/2018-blood cultures are positive for MRSA bacteremia presently is on cef triaxone 2 g IV daily and vancomycin as per ID recommendations plan is to discontinue IV vancomycin today I am going to arrange for PICC line probably tomorrow and patient is going to go home on IV Rocephin 2 g daily for 10 days. Patient is afebrile temperature is 97.7 WBC count is 7400. 10/02/2018-blood cultures are positive for MRSA bacteremia on IV ceftriaxone 2 g IV daily because well was placed today if everything is okay he can be discharged home on IV antibiotic therapy until 10/12/2018. WBC count today 10,000. Which is within normal range. (2) Pyelonephritis Is this a current diagnosis for this admission?: Yes Plan: 09/29/2018-patient denies any left CVA tenderness. Urine looks clear. Plan is to continue meropenem and IV vancomycin. Vanco trough is 11.4. 09/30/2018-patient has indwelling Maldonado's catheter urine looks clean. Presently on IV vancomycin and IV meropenem meropenem was discontinued and started on Rocephin 2 g IV as per ID recommendations. 10/01/2018-patient has indwelling catheter, urine culture is positive for MRSA and Klebsiella pneumonia plan is to continue IV antibiotic therapy discharge the patient home with PICC line to get IV Rocephin 2 g daily for 10 days. 10/02/2018-patient has indwelling catheter urine does look slightly dark in color probably secondary to chronic hematuria. Hemoglobin is 9.6 stable. He is getting Procrit injections. Dr. López is following the patient. (3) Leukocytosis Is this a current diagnosis for this admission?: Yes Plan: 09/29/2018-W BC count today is 8200. Significant improvement from the previous labs. On 09/27/2018 WBC is 39,000. Leukocytosis most likely secondary to sepsis is resolving. 09/30/2018-WBC count today 7600. Leukocytosis is resolved. 10/01/2018 WBC count is 7400 leukocytosis is resolved. (4) Anemia Qualifiers: Anemia type: due to chronic kidney disease Chronic kidney disease stage: stage 3 (moderate) Qualified Code(s): N18.3 - Chronic kidney disease, stage 3 (moderate); D63.1 - Anemia in chronic kidney disease Is this a current diagnosis for this admission?: No Plan: 09/29/2018-patient is given the history of chronic anemia he follows with Dr. López as an outpatient. His hemoglobin is 10.4 today stable. Patient is complaining of slight blood from the ureteral meatus after catheter was replaced in the ER. 09/30/2018 patient has history of anemia of chronic disease. Is following with Dr. López. He is going to receive Procrit on Saturday at her office. Rectal bleed is resolved. Hemoglobin is 10. Acute blood loss anemia may be secondary to rectal bleed. 10/01/2018-patient has history of anemia of chronic disease he received Procrit injection today and is going to follow-up with Dr. López as outpatient for the continuation of the Procrit therapy. 01/2019 patient has history of anemia of chronic disease as per the patient he has dysplastic anemia. Rene is the nuclear medicine supervisor following the patient closely. Patient receiving Procrit injections on a regular basis. (5) Septic shock Is this a current diagnosis for this admission?: Yes Plan: 09/29/2018-patient was admitted with septic shock blood cultures are positive for MRSA. Urine culture is positive for gram-negative rods and gram-positive cocci. On meropenem and IV vancomycin. Sepsis is resolving. During the initial days of admission he was tachycardic hypotensive requiring vasopressors. 09/30/2018-patient blood pressure today is 119/60 urine culture and blood culture showing Klebsiella and MRSA. Plan is to continue the antibiotic therapy. Septic shock is resolving. 10/01/2018-patient blood pressure today is 132/61, urine cultures blood cultures are positive for Klebsiella and MRSA on IV Rocephin 2 g daily patient is afebrile blood pressures are stable septic shock is resolved. 10/02/2018-patient blood pressure today is 121/57 stable. Septic shock is r esolved. 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 He follows with Dr. López. As per nuclear medicine supervisor thrombocytopenia most likely secondary to consumption. 09/30/2018-patient platelet count is 74,000 he has chronic thrombocytopenia. He is not on any DVT prophylaxis because of the low platelet count. 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 10/01/2018 patient's platelet count is 78,000 history of chronic low platelet count it may be most likely secondary to dysplastic anemia. 10/02/2018-patient's platelet count is 91,000 today slight improvement compared to yesterday. - Time Time Spent with patient: 15-24 minutes Medications reviewed and adjusted accordingly: Yes Anticipated discharge: Home
[2018-10-02] MEDS ORDERED: ONDANSETRON HCL INJ/PF 4 MG/2 ML SDV IV PRN (15:30)
[2018-10-02] MEDS: ATORVASTATIN CALCIUM 40 MG TABLET PO SCH (21:14)
[2018-10-02] MEDS: NORMAL SALINE 10 ML SDV (SCHEDULED) IV SCH (23:40)
[2018-10-03] MEDS: CLOTRIMAZOLE 1% CREAM 15 GM TP SCH (05:29)
--- NOTE | 2018-10-03 08:25 | PDOC PROGRESS REPORT ---
Subjective Progress Note for:: 10/03/18 Subjective:: Patient without new complaints today. Son states that he walked in the [place] yesterday. He is anxiously awaiting discharge. He had PICC line placed in preparation for this. Reason For Visit: SEVERE SEPSIS,PYELONEPHRITIS,LOWER GI BLEED,ANEMIA Physical Exam Vital Signs: Temp Pulse Resp BP Pulse Ox 97.5 F 73 15 117/56 L 94 10/03/18 04:54 10/03/18 04:54 10/02/18 20:37 10/03/18 04:54 10/03/18 04:54 Intake & Output 10/02/18 10/03/18 10/04/18 06:59 06:59 06:59 Intake Total 1130 550 Output Total 1600 950 Balance -470 -400 Weight 73.1 kg General appearance: PRESENT: thin Head exam: PRESENT: normocephalic Respiratory exam: PRESENT: clear to auscultation luz, unlabored Cardiovascular exam: PRESENT: other - heart sound obscured. Gentrourinary exam: PRESENT: indwelling catheter, other - Tea colored urine. Neurological exam: PRESENT: alert, awake Psychiatric exam: PRESENT: appropriate affect Skin exam: PRESENT: pallor Results Laboratory Results: 10/02/18 06:20 10/02/18 06:20 09/25/18 19:42 Troponin I < 0.012 Impressions: Chest X-Ray 09/25/18 00:00 IMPRESSION: Right IJ central line in good position. No pneumothorax. Abdomen/Pelvis CT 09/25/18 20:50 IMPRESSION: 1. Mild inflammatory changes surrounding the left kidney which may represent sequela of recently passed urinary stone. 2. Query mild inflammatory changes surrounding the urinary bladder; correlate with urinalysis to exclude UTI. 3. Maldonado catheter in the prostatic urethra; recommend advancement into the urinary bladder. 4. Diverticulosis without inflammatory changes. Guidance Fluoroscopy 10/02/18 00:00 IMPRESSION: SUCCESSFUL PLACEMENT OF A 5 FR DUAL LUMEN 38 CM PICC IN THE LEFT BASILIC VEIN. Interventional Vascular Procedure 10/02/18 00:00 IMPRESSION: SUCCESSFUL PLACEMENT OF A 5 FR DUAL LUMEN 38 CM PICC IN THE LEFT BASILIC VEIN. PICC Line Insertion 10/02/18 00:00 IMPRESSION: SUCCESSFUL PLACEMENT OF A 5 FR DUAL LUMEN 38 CM PICC IN THE LEFT BASILIC VEIN. Assessment & Plan - Diagnosis (1) Rectal bleeding Is this a current diagnosis for this admission?: Yes Plan: Now resolved. HGB remains stable. (2) Anemia Qualifiers: Anemia type: due to chronic kidney disease Chronic kidney disease stage: stage 3 (moderate) Qualified Code(s): N18.3 - Chronic kidney disease, stage 3 (moderate); D63.1 - Anemia in chronic kidney disease Is this a current diagnosis for this admission?: No Plan: He is due for Procrit today. This has been ordered. I am concerned about his urine. Unsure if there is some hemolysis, or if this is traumatic due to the Maldonado. I will check [facility] today. I am unsure why he has an indwelling Maldonado. (3) Thrombocytopenia Is this a current diagnosis for this admission?: No Plan: Most likely due to infection. This is improving. (4) Sepsis Qualifiers: Sepsis type: sepsis due to unspecified organism Qualified Code(s): A41.9 - Sepsis, unspecified organism Is this a current diagnosis for this admission?: Yes (5) Acute renal failure Is this a current diagnosis for this admission?: Yes - Plan Summary Plan Summary: He is scheduled to be discharged as soon as HHN can be arranged to continue IV Antibiotics. I agree with this plan and will follow as outpatient. Please call if anything else is needed.
[2018-10-03 09:17] VITALS: BP 113/59
[2018-10-03] MEDS: PYRIDOXINE HCL 50 MG TABLET PO SCH (09:58)
[2018-10-03] MEDS: CALCITRIOL 0.25 MCG CAPSULE PO SCH (09:58)
[2018-10-03] MEDS: VITAMIN E (DL, ACETATE) 400 UNIT CAPSULE PO SCH (10:00)
[2018-10-03] MEDS: LACTOBACILLUS ACIDOPHILUS 250 MG TAB PO SCH (10:00)
[2018-10-03] MEDS: METOPROLOL TARTRATE 50 MG TABLET PO SCH (10:00)
[2018-10-03] MEDS: SERTRALINE HCL 50 MG TABLET PO SCH (10:00)
[2018-10-03] MEDS: DUTASTERIDE 0.5 MG CAPSULE PO SCH (10:00)
[2018-10-03] MEDS: TAMSULOSIN HCL 0.4 MG CAP.SR.24H PO SCH (10:01)
[2018-10-03] MEDS: FAMOTIDINE 20 MG TABLET PO SCH (10:01)
[2018-10-03] MEDS: CEFTRIAXONE 2 GM/D5W RTU 2 GM/50 ML RTUPB IV SCH (10:01)
[2018-10-03] MEDS: NORMAL SALINE 10 ML SDV (SCHEDULED) IV SCH (10:02)
[2018-10-03] MEDS: CLONAZEPAM 1 MG TABLET PO PRN (10:13)
--- NOTE | 2018-10-03 13:04 | PDOC DISCHARGE SUMMARY ---
General - Admit/Disc Date/PCP Admission Date/Primary Care Provider: 09/26/18 03:02 DARLYN BROWNE MD Discharge Date: 10/03/18 - Discharge Diagnosis (1) Bacteremia Is this a current diagnosis for this admission?: Yes Summary: Patient has 2 out of 2 blood cultures positive for MRSA and Klebsiella pneumonia. Is presently on IV meropenem and vancomycin. Blood cultures x2 are repeated. Consult was placed for Dr. Barkley, infectious disease. Patient's urine cultures positive for gram-negative rods. Continues to have some mild left flank pain. CT the abdomen pelvis showed possible pial left kidney. 09/29/2018-second set of blood cultures came back positive for MRSA. Patient is on meropenem and vancomycin. Urine cultures showing gram-negative rods and gram-positive cocci. ID consult was placed as per the previous notes. The meantime plan is to continue the present antibiotic therapy. 09/30/2018-blood cultures positive for MRSA bacteremia. Patient is presently on meropenem and IV vancomycin as per ID recommendations meropenem was discontinued started on Rocephin 2 g IV daily. Urine culture is also showing Klebsiella and MRSA. Patient is afebrile T-max is 97.9 WBC count is 7600. Plan is to recheck the labs tomorrow. 10/01/2018-blood cultures are positive for MRSA bacteremia presently is on ceftriaxone 2 g IV daily and vancomycin as per ID recommendations plan is to discontinue IV vancomycin today I am going to arrange for PICC line probably tomorrow and patient is going to go home on IV Rocephin 2 g daily for 10 days. Patient is afebrile temperature is 97.7 WBC count is 7400. 10/02/2018-blood cultures are positive for MRSA bacteremia on IV ceftriaxone 2 g IV daily because well was placed today if everything is okay he can be discharged home on IV antibiotic therapy until 10/12/2018. WBC count today 10,000. Which is within normal range. 02/2019-blood cultures and urine culture positive for MRSA treated with IV Rocephin and vancomycin as per ID recommendations he is going home on IV Rocephin 2 g daily until 10/12/2018. Patient is afebrile today's WBC count is 10.3. Vital signs today temperature is 98 pulse rate is 84 blood pressure is 113/60. (2) Pyelonephritis Is this a current diagnosis for this admission?: Yes Summary: 09/29/2018-patient denies any left CVA tenderness. Urine looks clear. Plan is to continue meropenem and IV vancomycin. Vanco trough is 11.4. 09/30/2018-patient has indwelling Maldonado's catheter urine looks clean. Presently on IV vancomycin and IV meropenem meropenem was discontinued and started on Rocephin 2 g IV as per ID recommendations. 10/01/2018-patient has indwelling catheter, urine culture is positive for MRSA and Klebsiella pneumonia plan is to continue IV antibiotic therapy discharge the patient home with PICC line to get IV Rocephin 2 g daily for 10 days. 10/02/2018-patient has indwelling catheter urine does look slightly dark in color probably secondary to chronic hematuria. Hemoglobin is 9.6 stable. He is getting Procrit injections. Dr. López is following the patient. 10/03/2018-patient has indwelling catheter and still have the dark colored urine hemoglobin is 9.6 stable. He is receiving Procrit injections by Dr. López. I called the urologist office got an appointment for him on 10 AM next week. I am concerned about persistent hematuria but the patient prefers to go home and follow-up with urologist as an outpatient. (3) Leukocytosis Is this a current diagnosis for this admission?: Yes Summary: 09/29/2018-W BC count today is 8200. Significant improvement from the previous labs. On 09/27/2018 WBC is 39,000. Leukocytosis most likely secondary to sepsis is resolving. 09/30/2018-WBC count today 7600. Leukocytosis is resolved. 10/01/2018 WBC count is 7400 leukocytosis is resolved. 10/03/2018-patient's WBC count is 10,000 today it was 39,000 on 09/27/2018 leukocytosis secondary to sepsis resolved. (4) Anemia Is this a current diagnosis for this admission?: No Summary: 09/29/2018-patient is given the history of chronic anemia he follows with Dr. Lpóez as an outpatient. His hemoglobin is 10.4 today stable. Patient is complaining of slight blood from the ureteral meatus after catheter was replaced in the ER. 09/30/2018 patient has history of anemia of chronic disease. Is following with Dr. López. He is going to receive Procrit on Saturday at her office. Rectal bl eed is resolved. Hemoglobin is 10. Acute blood loss anemia may be secondary to rectal bleed. 10/01/2018-patient has history of anemia of chronic disease he received Procrit injection today and is going to follow-up with Dr. López as outpatient for the continuation of the Procrit therapy. 10/02/2018 patient has history of anemia of chronic disease as per the patient he has dysplastic anemia. Rene is the paperhanger following the patient closely. Patient receiving Procrit injections on a regular basis. 10/03/2018-patient has history of anemia of chronic disease he is receiving Procrit injections. Still have the dark colored urine in the urinary bag. He is going to follow-up with urologist next week. (5) Septic shock Is this a current diagnosis for this admission?: Yes Summary: 09/29/2018-patient was admitted with septic shock blood cultures are positive for MRSA. Urine culture is positive for gram-negative rods and gram-positive cocci. On meropenem and IV vancomycin. Sepsis is resolving. During the initial days of admission he was tachycardic hypotensive requiring vasopressors. 09/30/2018-patient blood pressure today is 119/60 urine culture and blood culture showing Klebsiella and MRSA. Plan is to continue the antibiotic therapy. Septic shock is resolving. 10/01/2018-patient blood pressure today is 132/61, urine cultures blood cultures are positive for Klebsiella and MRSA on IV Rocephin 2 g daily patient is afebrile blood pressures are stable septic shock is resolved. 10/02/2018-patient blood pressure today is 121/57 stable. Septic shock is resolved. 10/03/2018-patient blood pressure today is 130/60. Temperature is 98.0. Afebrile. Blood cultures urine culture came back positive for Klebsiella and MRSA is going home on IV Rocephin 2 g daily for the next 10 days. Sepsis is resolved. (6) Thrombocytopenia Is this a current diagnosis for this admission?: No - Additional Information Resuscitation Status: Do Not Intubate Discharge Diet: Cardiac Discharge Activity: Activity As Tolerated Prescriptions: Ceftriaxone Sodium [Rocephin Inj 2000 mg Vial] 2,000 gm IV DAILY 10 Days vial Home Medications: Atorvastatin Calcium [Lipitor 40 mg Tablet] 40 mg PO DAILY 09/26/18 Calcitriol [Rocaltrol 0.25 mcg Capsule] 0.25 mcg PO MOWEFR@0800 09/26/18 Clonazepam [Klonopin 1 mg Tablet] 1 mg PO Q12HP PRN 09/26/18 Dutasteride [Avodart Lf 0.5 mg Capsule] 0.5 mg PO DAILY 09/26/18 Metoprolol Tartrate [Lopressor 50 mg Tablet] 50 mg PO Q12 09/26/18 Nitroglycerin 0.4 mg SL Q5MP PRN 09/26/18 Pyridoxine HCl [Vitamin B-6] 100 mg PO DAILY 09/26/18 Sertraline HCl [Zoloft 50 mg Tablet] 50 mg PO DAILY 09/26/18 Tamsulosin HCl [Flomax 0.4 mg Cap.sr] 0.4 mg PO BID 09/26/18 Vitamin E 400 unit PO DAILY 09/26/18 Ceftriaxone Sodium [Rocephin Inj 2000 mg Vial] 2,000 gm IV DAILY 10 Days vial 10/02/18 History of Present Illness History of Present Illness: KERA CAMPBELL I is a 83 year old male 83 year old male who has a past medical history of coronary artery disease status post coronary artery bypass grafting 2 years ago, atrial fibrillation, myocardial infarct in 2015, myelodysplasia with anemia, BPH and chronic indwelling Maldonado. Patient been in his usual state of health until approximately 2 months ago developed an episode of maroon stools which resolved spontaneously without intervention. He has had a return of over the last 3 days a recurrence which is not subsided, 48 hours ago he had his Maldonado catheter replaced by his urologist resulting in subsequent pain, fever and hematuria. In the emergency room he is found to have hypotension, tachycardia, hypoxia and fever, anemia with gross hematuria and strongly positive occult blood in the stool. Patient refuses transfer to tertiary care with knowledge of no urologist, sales service coordinator or surgeon on-call at this time. He wishes for noninvasive management only. Patient requires transfusion of 2 units of packed red blood cells, 4 L of colloid and referred to the hospitalist for admission. Patient denies any medications of the last 2 weeks Patient's son Ash is power of loaders and at bedside. Patient verifies his CODE STATUS is full code. At the time of my evaluation patient is hypotensive with a systolic pressure of 88, hypoxic at 90% on partial nonrebreather with Manera exam revealing crackles throughout. Patient denies chest pain. Levophed ordered, DuoNeb ordered and he is placed on BiPAP. Physical Exam Vital Signs: Temp Pulse Resp BP Pulse Ox 98.0 F 84 17 113/59 L 96 10/03/18 08:48 10/03/18 08:48 10/03/18 08:48 10/03/18 08:48 10/03/18 09:29 Intake & Output 10/02/18 10/03/18 10/04/18 06:59 06:59 06:59 Intake Total 1130 550 50 Output Total 1600 950 Balance -470 -400 50 Weight 73.1 kg General appearance: PRESENT: no acute distress Head exam: PRESENT: atraumatic Eye exam: PRESENT: PERRLA Mouth exam: PRESENT: dry mucosa Neck exam: ABSENT: carotid bruit, JVD, lymphadenopathy, thyromegaly Respiratory exam: PRESENT: clear to auscultation luz. ABSENT: rales, rhonchi, wheezes Cardiovascular exam: PRESENT: RRR. ABSENT: diastolic murmur, rubs, systolic murmur Pulses: PRESENT: normal dorsalis pedis pul GI/Abdominal exam: PRESENT: normal bowel sounds, soft. ABSENT: distended, guarding, mass, organolmegaly, rebound, tenderness Gentrourinary exam: PRESENT: indwelling catheter Extremities exam: PRESENT: full ROM. ABSENT: calf tenderness, clubbing, pedal edema Neurological exam: PRESENT: alert, awake, oriented to person, oriented to place, oriented to time, oriented to situation, CN II-XII grossly intact. ABSENT: motor sensory deficit Psychiatric exam: PRESENT: appropriate affect, normal mood. ABSENT: homicidal ideation, suicidal ideation Results Laboratory Results: 10/02/18 06:20 10/02/18 06:20 09/28/18 12:09 Blood Blood Culture - Final NO GROWTH IN 5 DAYS 09/28/18 11:55 Blood Blood Culture - Final NO GROWTH IN 5 DAYS 09/25/18 19:42 Troponin I < 0.012 Impressions: Chest X-Ray 09/25/18 00:00 IMPRESSION: Right IJ central line in good position. No pneumothorax. Abdomen/Pelvis CT 09/25/18 20:50 IMPRESSION: 1. Mild inflammatory changes surrounding the left kidney which may represent sequela of recently passed urinary stone. 2. Query mild inflammatory changes surrounding the urinary bladder; correlate with urinalysis to exclude UTI. 3. Maldonado catheter in the prostatic urethra; recommend advancement into the urinary bladder. 4. Diverticulosis without inflammatory changes. Guidance Fluoroscopy 10/02/18 00:00 IMPRESSION: SUCCESSFUL PLACEMENT OF A 5 FR DUAL LUMEN 38 CM PICC IN THE LEFT BASILIC VEIN. Interventional Vascular Procedure 10/02/18 00:00 IMPRESSION: SUCCESSFUL PLACEMENT OF A 5 FR DUAL LUMEN 38 CM PICC IN THE LEFT BASILIC VEIN. PICC Line Insertion 10/02/18 00:00 IMPRESSION: SUCCESSFUL PLACEMENT OF A 5 FR DUAL LUMEN 38 CM PICC IN THE LEFT B ASILIC VEIN. Qualifiers - * PATIENT BEING DISCHARGED WITH ANY OF THE FOLLOWING DIAGNOSIS: No VTE patient discharged on overlapping Therapy?: No
== END 2018-10-03 12:36 | disposition home health service (06) | DRG 871 ==
LOC: ER 19:14 → EH 09-26 03:02 → ICU 09-26 21:33 → 4W 09-27 16:13
PROVIDERS: ADMIT Internal Medicine; ATTEND Internal Medicine
PROC: 02HV33Z Insertion of Infusion Device into Superior Vena Cava, Percutaneous Approach (ICD-10-PCS; principal; 2018-09-25)
PROC: 30233N1 Transfusion of Nonautologous Red Blood Cells into Peripheral Vein, Percutaneous Approach (ICD-10-PCS; 2018-09-26)
PROC: 02HV33Z Insertion of Infusion Device into Superior Vena Cava, Percutaneous Approach (ICD-10-PCS; 2018-10-02)
PROC: B518YZA Fluoroscopy of Superior Vena Cava using Other Contrast, Guidance (ICD-10-PCS; 2018-10-02)
PROC: B548ZZA Ultrasonography of Superior Vena Cava, Guidance (ICD-10-PCS; 2018-10-02)
DX: A41.02 Sepsis due to Methicillin resistant Staphylococcus aureus (principal); K57.31 Diverticulosis of large intestine without perforation or abscess with bleeding; J96.00 Acute respiratory failure, unspecified whether with hypoxia or hypercapnia; R65.21 Severe sepsis with septic shock; K62.5 Hemorrhage of anus and rectum; N12 Tubulo-interstitial nephritis, not specified as acute or chronic; D46.9 Myelodysplastic syndrome, unspecified; I10 Essential (primary) hypertension; N40.0 Benign prostatic hyperplasia without lower urinary tract symptoms; I48.91 Unspecified atrial fibrillation; D69.6 Thrombocytopenia, unspecified; E78.00 Pure hypercholesterolemia, unspecified; B96.1 Klebsiella pneumoniae [K. pneumoniae] as the cause of diseases classified elsewhere; B95.62 Methicillin resistant Staphylococcus aureus infection as the cause of diseases classified elsewhere; F17.210 Nicotine dependence, cigarettes, uncomplicated; I25.2 Old myocardial infarction; Z95.1 Presence of aortocoronary bypass graft
CPT/HCPCS: 36415; 36430; 36569; 51702; 71045; 74177; 76937; 77001; 80048; 80053; 80202; 81001; 82565; 82607; 82728; 82746; 82803; 82962; 83540; 83550; 83605; 83615; 83735; 84484; 85025; 85027; 85045; 85610; 86850; 86900; 86901; 86920; 87040; 87077; 87086; 87088; 87186; 93005; 93010; 94660; 94667; 94799; 96361; 96365; 96367; 96375; 99291; 99292; C1751; C1758; J0692; J0696; J1642; J2185; J2270; J3370; J3490; J7030; J7060; J7120; J7620; P9016; Q4081

== ENCOUNTER → 2018-11-03 | Outpatient (CLI) | payer MEDICARE ==
[2018-11-03 13:37] LABS: HEMOGLOBIN 8.8 g/dL (13.5-17.0); MEAN CORPUSCULAR HEMOGLOBIN 36.6 pg (27.0-33.4); MEAN CORPUSCULAR VOLUME 108 fl (80-97); PLATELET COUNT 116 10^3/uL (150-450); RED BLOOD COUNT 2.41 10^6/uL (4.35-5.55); RED CELL DISTRIBUTION WIDTH 20.2 % (11.5-14.0); WHITE BLOOD COUNT 5.5 10^3/uL (4.0-10.5)
[2018-11-03 13:56] LABS: ANION GAP 5 (5-19); BLOOD UREA NITROGEN 28 mg/dL (7-20); CALCIUM 9.3 mg/dL (8.4-10.2); CARBON DIOXIDE 27 mmol/L (22-30); CHLORIDE 105 mmol/L (98-107); GLUCOSE 95 mg/dL (75-110); IRON(TIBC) 41.4 ug/dL (49-181); SODIUM 136.8 mmol/L (137-145)
[2018-11-03 14:04] LABS: ABSOLUTE LYMPHOCYTES# (MANUAL) 1.2 10^3/uL (0.5-4.7); ABSOLUTE MONOCYTES # (MANUAL) 1.4 10^3/uL (0.1-1.4); ABSOLUTE NEUTROPHILS# (MANUAL) 1.5 10^3/uL (1.7-8.2); BASOPHILS % (MANUAL) 2 % (0-2); EOSINOPHILS % (MANUAL) 24 % (0-6); LYMPHOCYTES % (MANUAL) 21 % (13-45); MONOCYTES % (MANUAL) 26 % (3-13); SEGMENTED NEUTROPHILS % (MAN) 27 % (42-78); TOTAL CELLS COUNTED 100
[2018-11-03 14:05] LABS: TOXIC GRANULATION 2+; TOXIC VACUOLATION PRESENT
[2018-11-03 14:06] LABS: ANISOCYTOSIS 2+; OVALOCYTES 1+; PLATELET COMMENT DECREASED; POIKILOCYTOSIS 1+
[2018-11-04 11:12] LABS: PATH REVIEW PATHOLOGIST REVIEWED
== END ==
LOC: OD 13:00
PROVIDERS: ATTEND Internal Medicine Nephrology
DX: N18.3 Chronic kidney disease, stage 3 (moderate) (principal); D63.1 Anemia in chronic kidney disease; D50.9 Iron deficiency anemia, unspecified
CPT/HCPCS: 36415; 80048; 82728; 83540; 83550; 83970; 85025

== ENCOUNTER → 2019-02-25 | Outpatient (CLI) | payer MEDICARE ==
[2019-02-25 11:13] LABS: HEMATOCRIT 28.6 % (37.9-51.0); HEMOGLOBIN 9.5 g/dL (13.5-17.0); MEAN CORPUSCULAR HEMOGLOBIN 35.8 pg (27.0-33.4); MEAN CORPUSCULAR HGB CONC 33.4 g/dL (32.0-36.0); MEAN CORPUSCULAR VOLUME 107 fl (80-97); PLATELET COUNT 141 10^3/uL (150-450); RED BLOOD COUNT 2.66 10^6/uL (4.35-5.55); RED CELL DISTRIBUTION WIDTH 21.3 % (11.5-14.0); WHITE BLOOD COUNT 7.3 10^3/uL (4.0-10.5)
[2019-02-25 11:24] LABS: BLOOD UREA NITROGEN 27 mg/dL (7-20); CARBON DIOXIDE 28 mmol/L (22-30); CHLORIDE 106 mmol/L (98-107); IRON(TIBC) 52.8 ug/dL (49-181); POTASSIUM 4.7 mmol/L (3.6-5.0)
[2019-02-25 11:25] LABS: CALCIUM 9.1 mg/dL (8.4-10.2); GLUCOSE 100 mg/dL (75-110); UR PRO/CREAT RATIO RESULT 2.1 mg/mg (0.0-0.2); URINE CREATININE 91.4 mg/dL (22-328); URINE PROTEIN 192.7 mg/dL (<12)
[2019-02-25 11:26] LABS: ANION GAP 5 (5-19)
[2019-02-25 11:37] LABS: ABSOLUTE LYMPHOCYTES# (MANUAL) 1.4 10^3/uL (0.5-4.7); ABSOLUTE MONOCYTES # (MANUAL) 2.3 10^3/uL (0.1-1.4); BAND NEUTROPHILS % (MANUAL) 1 % (3-5); BASOPHILS % (MANUAL) 2 % (0-2); EOSINOPHILS % (MANUAL) 4 % (0-6); LYMPHOCYTES % (MANUAL) 19 % (13-45); SEGMENTED NEUTROPHILS % (MAN) 43 % (42-78); TOTAL CELLS COUNTED 100
[2019-02-25 11:39] LABS: ANISOCYTOSIS 3+; POIKILOCYTOSIS SLIGHT; POLYCHROMASIA 1+
[2019-02-25 11:40] LABS: MONOCYTES % (MANUAL) 31 % (3-13); PLATELET COMMENT DECREASED; PLATELET LARGE PRESENT; TEAR DROP CELLS SLIGHT
[2019-02-26 11:19] LABS: ALANINE AMINOTRANSFERASE 20 U/L (21-72); ALBUMIN 3.4 g/dL (3.5-5.0); ALKALINE PHOSPHATASE 87 U/L (38-126); ASPARTATE AMINO TRANSFERASE 29 U/L (17-59); BILIRUBIN,DIRECT 0.3 mg/dL (0.0-0.4); BILIRUBIN,TOTAL 0.5 mg/dL (0.2-1.3); CHOLESTEROL 105.26 mg/dL (0-200); TOTAL PROTEIN 6.9 g/dL (6.3-8.2); TRIGLYCERIDES 82 mg/dL (<150)
[2019-02-26 11:30] LABS: DIRECT LDL 61 mg/dL (<100)
[2019-02-26 13:05] LABS: PATH REVIEW PATHOLOGIST REVIEWED
== END ==
LOC: OD 10:37
PROVIDERS: ATTEND Internal Medicine Nephrology
DX: E78.00 Pure hypercholesterolemia, unspecified (principal); I12.9 Hypertensive chronic kidney disease with stage 1 through stage 4 chronic kidney disease, or unspecified chronic kidney disease; N18.4 Chronic kidney disease, stage 4 (severe); D64.9 Anemia, unspecified; I48.0 Paroxysmal atrial fibrillation; Z79.899 Other long term (current) drug therapy
CPT/HCPCS: 36415; 80048; 80061; 80076; 82570; 82728; 83540; 83550; 83735; 83970; 84156; 85025

== ENCOUNTER → 2020-03-21 | Outpatient (CLI) | payer MEDICARE ==
--- NOTE | 2020-03-21 16:15 | RADIOLOGY REPORT (SQ) ---
EXAM DESCRIPTION: CHEST PA/LATERAL IMAGES COMPLETED DATE/TIME: 03/21/2020 3:51 pm REASON FOR STUDY: CHEST PAIN, UNSPECIFIED,SOB COMPARISON: 09/25/2018 EXAM PARAMETERS: NUMBER OF VIEWS: two views TECHNIQUE: Digital Frontal and Lateral radiographic views of the chest acquired. RADIATION DOSE: NA LIMITATIONS: none FINDINGS: LUNGS AND PLEURA: Chronic mild interstitial changes in the lungs. No acute pulmonary con solidation. No pneumothorax or pleural effusion. MEDIASTINUM AND HILAR STRUCTURES: No masses or contour abnormalities. HEART AND VASCULAR STRUCTURES: Stable appearance. No evidence for failure. BONES: No acute findings. HARDWARE: Prior anterior median sternotomy. OTHER: No other significant finding. IMPRESSION: 1. Chronic mild interstitial changes in the lungs. No acute pulmonary findings. TECHNICAL DOCUMENTATION: JOB ID: [id number] 2010 [employer]- All Rights Reserved Reading location - IP/workstation name: [email or web address]
== END ==
LOC: OD 15:23
PROVIDERS: ATTEND Internal Medicine Hematology & Oncology
DX: R06.02 Shortness of breath (principal); R07.9 Chest pain, unspecified
CPT/HCPCS: 71046